=== PATIENT | female | born 2000 | race Caucasian/White ===

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

== ENCOUNTER 2019-03-21 21:27 | Emergency (ER) | payer BC ==
[2019-03-21 21:40] VITALS: O2SAT 97
[2019-03-21] MEDS ORDERED: Sodium Chloride 0.9% 1000 ML 1,000 ML IV SCH (22:15)
--- NOTE | 2019-03-21 22:20 | ERPHSYRPT ---
- History of Present Illness Time Seen by Provider: 03/21/19 22:00 Source: patient Patient Subjective Stated Complaint: pt states, "I'm in DKA, my BS was 432 at home and my ketones were large". Triage Nursing Assessment: pt states her blood sugars have been high and her assistant county attorney told her to come in due to and increase in her ketones. patient alert and oriented with no further difficulties Physician History: Patient has had high blood sugars past 4 hours. Patient had a kink in her insulin pump in the evening of 03/21/2019 and did not get insulin for 2 hours at least. Patient began having increased thirst, increased urination, headache and fatigue at 17:00 on 03/22/2019 and found that she had high ketones on her check. Timing/Duration: today, hour(s) (4) Severity: moderate Modifying Factors: Improves With: nothing Associated Symptoms: headaches, malaise, weakness, No nausea, No vomiting, No abdominal pain, No shortness of breath, No heartburn, No diaphoresis, No cough, No chills, No chest pain, No fever, No loss of appetite, No rash, No syncope, No seizure Allergies/Adverse Reactions: nickel [Nickel] Allergy (Verified 11/12/15 15:25) Rash Home Medications: Insulin Aspart (Niacinamide) [Fiasp 100 Unit/ml Vial] 03/21/19 [History] Hx Tetanus, Diphtheria Vaccination/Date Given: Yes Hx Influenza Vaccination/Date Given: No Hx Pneumococcal Vaccination/Date Given: No Immunizations Up to Date: Yes - Review of Systems Constitutional: Fatigue, Malaise, Weakness, No Fever, No Chills Eyes: No Eye Pain, No Vision Changes Ears, Nose, & Throat: No Ear Pain, No Nose Congestion, No Epistaxis, No Throat Pain, No Hoarse, No Painful Swallowing Respiratory: No Cough, No Dyspnea Cardiac: No Chest Pain, No Edema, No Syncope Abdominal/Gastrointestinal: No Abdominal Pain, No Nausea, No Vomiting, No Diarrhea, No Constipation, No Hematemesis Genitourinary Symptoms: No Dysuria Musculoskeletal: No Back Pain, No Neck Pain Skin: No Rash Neurological: No Dizziness, No Focal Weakness, No Parasthesia, No Sensory Changes Psychological: No Anxiety, No Emotional Lability Endocrine: No Symptoms, Polyuria, Polydipsia, No Excessive Sweating Hematologic/Lymphatic: No Easy Bleeding, No Easy Bruising All Other Systems: Reviewed and Negative - Past Medical History Pertinent Past Medical History: Yes Neurological History: No Pertinent History ENT History: No Pertinent History Cardiac History: No Pertinent History Respiratory History: No Pertinent History Endocrine Medical History: Diabetes Type I Musculoskeletal History: No Pertinent History GI Medical History: No Pertinent History History: No Pertinent History Psycho-Social History: No Pertinent History Female Reproductive Disorders: No Pertinent History Other Medical History: DMI with insuline pump, L wrist fracture 2x, R wrist fracture, broken nose - Past Surgical History Past Surgical History: Yes Neuro Surgical History: No Pertinent History Cardiac: No Pertinent History Respiratory: No Pertinent History Gastrointestinal: No Pertinent History Genitourinary: No Pertinent History Musculoskeletal: No Pertinent History Female Surgical History: No Pertinent History Other Surgical History: tonsillectomy. and adenoidectomy at age 6 - Social History Smoking Status: Never smoker Exposure to second hand smoke: No Drug Use: none Patient Lives Alone: No - Female History Hx Last Menstrual Period: 03/09/19 Hx Now: No - Nursing Vital Signs Nursing Vital Signs: Initial Vital Signs Temperature 98.6 F 03/21/19 21:36 Pulse Rate 114 H 03/21/19 21:36 Respiratory Rate 17 03/21/19 21:36 Blood Pressure 128/83 03/21/19 21:36 O2 Sat by Pulse Oximetry 97 03/21/19 21:36 Pain Scale Pain Intensity 4 - Physical Exam General Appearance: no apparent distress, alert Eye Exam: PERRL/EOMI, eyes nml inspection Ears, Nose, Throat Exam: normal ENT inspection, TMs normal, pharynx normal, moist mucous membranes Neck Exam: normal inspection, non-tender, supple, full range of motion, No meningismus, No Brudzinski Respiratory Exam: normal breath sounds, lungs clear, No respiratory distress Cardiovascular Exam: regular rate/rhythm, normal heart sounds, normal peripheral pulses, capillary refill <2 sec Gastrointestinal/Abdomen Exam: soft, normal bowel sounds, No tenderness, No distention, No mass Back Exam: normal inspection, normal range of motion, No CVA tenderness, No vertebral tenderness Extremity Exam: normal inspection, normal range of motion, pelvis stable Neurologic Exam: alert, oriented x 3, cooperative, normal mood/affect, nml cerebellar function, nml station & gait, sensation nml, No motor deficits Skin Exam: normal color, warm, dry, No rash Lymphatic Exam: No adenopathy SpO2 Interpretation: normal SpO2: 97 O2 Delivery: Room Air - Course Nursing assessment & vital signs reviewed: Yes EKG Interpreted by Me: RATE (99), Sinus Rhythm, NORMAL AXIS, NORMAL INTERVALS, NORMAL QRS, NORMAL ST-T Rhythm Strip: Normal Sinus Rhythm - Radiology Exams Chest X-ray Interpretation: Interpreted by me, Reviewed by me, No Fracture, No Pneumonia, No Pneumothorax, No Infiltrates, Nml Mediastinum Ordered Tests: Active Orders 24 hr Category Date Time Status Accucheck STAT Care 03/21/19 22:11 Active K 9 Handler/ Deputy STAT Care 03/21/19 22:12 Active EKG-ER Only STAT Care 03/21/19 22:11 Active IV Insertion STAT Care 03/21/19 22:11 Active IV Insertion-2nd Peripheral STAT Care 03/21/19 22:11 Active Pulse Oximetry (ED) STAT Care 03/21/19 22:11 Active CHEST 1 VIEW (PORTABLE) Stat Exams 03/21/19 22:12 Taken BLOOD CULTURE Stat Lab 03/21/19 22:12 Received BMP Stat Lab 03/22/19 00:54 Completed CBC W DIFF Stat Lab 03/21/19 22:38 Completed CMP Stat Lab 03/21/19 22:38 Completed CULTURE,URINE Stat Lab 03/22/19 00:26 Received HCG,QUALITATIVE URINE Stat Lab 03/21/19 22:45 Completed Lactic Acid Stat Lab 03/21/19 22:11 Results Lactic Acid Stat Lab 03/22/19 00:50 Completed PROTIME WITH INR Stat Lab 03/21/19 22:38 Completed PTT Stat Lab 03/21/19 22:38 Completed UA W/RFX UR CULTURE Stat Lab 03/21/19 22:45 Completed VENOUS BLOOD GAS Stat Lab 03/21/19 22:11 Completed VENOUS BLOOD GAS Stat Lab 03/22/19 00:50 Completed Medication Summary Generic Name Dose Route Start Last Admin Trade Name Freq PRN Reason Stop Dose Admin Sodium Chloride 1,000 mls @ 999 mls/hr 03/21/19 22:15 03/22/19 00:33 Sodium Chloride 0.9% 1000 Ml IV 03/22/19 01:15 Infused .Q1H1M EUGENIO Infusion Dextrose 250 mls @ 80 mls/hr 03/22/19 01:00 03/22/19 00:38 Dextrose 10% 250 Ml IV 04/21/19 00:59 80 mls/hr .Q3H8M EUGENIO Administration Lab/Rad Data: Laboratory Result Diagrams 03/21/19 22:38 03/22/19 00:54 Laboratory Results 03/22/19 03/22/19 03/22/19 Range/Units 00:54 00:50 00:50 WBC (4.0-10.5) K/mm3 RBC (4.1-5.4) M/mm3 Hgb (12.0-16.0) gm/dl Hct (35-47) % MCV (78-100) fl MCH (26-32) pg MCHC (32-36) g/dl RDW (11.5-14.0) % Plt Count (150-450) K/mm3 MPV (6-9.5) fl Gran % (36.0-66.0) % Eos # (Auto) (0-0.5) Absolute Lymphs (auto) (1.0-4.6) Absolute Monos (auto) (0.0-1.3) Lymphocytes % (24.0-44.0) % Monocytes % (0.0-12.0) % Eosinophils % (0.00-5.0) % Basophils % (0.0-0.4) % Absolute Granulocytes (1.4-6.9) Basophils # (0-0.4) PT (9.95-12.35) SECONDS INR (0.8-3.0) APTT (25.3-37.0) SECONDS pO2/FiO2 Ratio 21.0 % VBG pH 7.30 L (7.32-7.42) VBG pCO2 at Pat Temp 43 (42-55) mm/Hg VBG pO2 at Pat Temp 30 (25-40) mm/Hg VBG HCO3 21.2 L (22-28) meq/L VBG O2 Sat ([place]) 64.4 L (95-100) VBG Base Excess -5.1 L (-2.0-2.0) VBG Hemoglobin 13.6 VBG Carboxyhemoglobin 2.5 (0.0-6.9) % T HGB POC Potassium 3.4 L (3.5-5.1) Sodium 140 (137-145) mmol/L Potassium 3.6 (3.5-5.1) mmol/L Chloride 110 H (98-107) mmol/L Carbon Dioxide 21 L (22-30) mmol/L Anion Gap 12.4 (5-15) MEQ/L BUN 11 (7-17) mg/dL Creatinine 0.44 L (0.52-1.04) mg/dL Estimated GFR > 60.0 ML/MIN Glucose 107 H (74-106) mg/dL Lactic Acid 1.4 (0.4-2.0) Calcium 8.0 L D (8.4-10.2) mg/dL Total Bilirubin (0.2-1.3) mg/dL AST (14-36) U/L ALT (0-35) U/L Alkaline Phosphatase (38-126) U/L Serum Total Protein (6.3-8.2) g/dL Albumin (3.5-5.0) g/dL Urine Color (YELLOW) Urine Appearance (CLEAR) Urine pH (5-6) Ur Specific [place] (1.005-1.025) Urine Protein (Negative) Urine Ketones (NEGATIVE) Urine Blood (0-5) [place]/ul Urine Nitrite (NEGATIVE) Urine Bilirubin (NEGATIVE) Urine Urobilinogen (0-1) mg/dL Ur Leukocyte Esterase (NEGATIVE) Urine WBC (Auto) (0-5) /HPF Urine RBC (Auto) (0-2) /HPF U Epithel Cells (Auto) (FEW) /HPF Urine Bacteria (Auto) (NEGATIVE) /HPF Urine Mucus (Auto) (NEGATIVE) /HPF Urine Culture Reflexed (NO) Urine Glucose (NEGATIVE) mg/dL Urine HCG, Qual (Negative) 03/21/19 03/21/19 03/21/19 Range/Units 22:45 22:45 22:38 WBC (4.0-10.5) K/mm3 RBC (4.1-5.4) M/mm3 Hgb (12.0-16.0) gm/dl Hct (35-47) % MCV (78-100) fl MCH (26-32) pg MCHC (32-36) g/dl RDW (11.5-14.0) % Plt Count (150-450) K/mm3 MPV (6-9.5) fl Gran % (36.0-66.0) % Eos # (Auto) (0-0.5) Absolute Lymphs (auto) (1.0-4.6) Absolute Monos (auto) (0.0-1.3) Lymphocytes % (24.0-44.0) % Monocytes % (0.0-12.0) % Eosinophils % (0.00-5.0) % Basophils % (0.0-0.4) % Absolute Granulocytes (1.4-6.9) Basophils # (0-0.4) PT 10.4 (9.95-12.35) SECONDS INR 0.92 (0.8-3.0) APTT 35.3 (25.3-37.0) SECONDS pO2/FiO2 Ratio % VBG pH (7.32-7.42) VBG pCO2 at Pat Temp (42-55) mm/Hg VBG pO2 at Pat Temp (25-40) mm/Hg VBG HCO3 (22-28) meq/L VBG O2 Sat ([place]) (95-100) VBG Base Excess (-2.0-2.0) VBG Hemoglobin VBG Carboxyhemoglobin (0.0-6.9) % T HGB POC Potassium (3.5-5.1) Sodium (137-145) mmol/L Potassium (3.5-5.1) mmol/L Chloride (98-107) mmol/L Carbon Dioxide (22-30) mmol/L Anion Gap (5-15) MEQ/L BUN (7-17) mg/dL Creatinine (0.52-1.04) mg/dL Estimated GFR ML/MIN Glucose (74-106) mg/dL Lactic Acid (0.4-2.0) Calcium (8.4-10.2) mg/dL Total Bilirubin (0.2-1.3) mg/dL AST (14-36) U/L ALT (0-35) U/L Alkaline Phosphatase (38-126) U/L Serum Total Protein (6.3-8.2) g/dL Albumin (3.5-5.0) g/dL Urine Color STRAW (YELLOW) Urine Appearance CLEAR (CLEAR) Urine pH 5.0 (5-6) Ur Specific [place] 1.033 (1.005-1.025) Urine Protein NEGATIVE (Negative) Urine Ketones SMALL (NEGATIVE) Urine Blood NEGATIVE (0-5) [place]/ul Urine Nitrite NEGATIVE (NEGATIVE) Urine Bilirubin NEGATIVE (NEGATIVE) Urine Urobilinogen NEGATIVE (0-1) mg/dL Ur Leukocyte Esterase NEGATIVE (NEGATIVE) Urine WBC (Auto) NONE (0-5) /HPF Urine RBC (Auto) NONE SEEN (0-2) /HPF U Epithel Cells (Auto) NONE (FEW) /HPF Urine Bacteria (Auto) NONE SEEN (NEGATIVE) /HPF Urine Mucus (Auto) SLIGHT (NEGATIVE) /HPF Urine Culture Reflexed NO (NO) Urine Glucose >=500 (NEGATIVE) mg/dL Urine HCG, Qual NEGATIVE (Negative) 03/21/19 03/21/19 03/21/19 Range/Units 22:38 22:38 22:11 WBC 9.6 (4.0-10.5) K/mm3 RBC 5.26 (4.1-5.4) M/mm3 Hgb 15.5 (12.0-16.0) gm/dl Hct 44.9 (35-47) % MCV 85.4 (78-100) fl MCH 29.5 (26-32) pg MCHC 34.5 (32-36) g/dl RDW 12.5 (11.5-14.0) % Plt Count 267 (150-450) K/mm3 MPV 11.4 H (6-9.5) fl Gran % 60.3 (36.0-66.0) % Eos # (Auto) 0.10 (0-0.5) Absolute Lymphs (auto) 3.09 (1.0-4.6) Absolute Monos (auto) 0.58 (0.0-1.3) Lymphocytes % 32.4 (24.0-44.0) % Monocytes % 6.1 (0.0-12.0) % Eosinophils % 1.0 (0.00-5.0) % Basophils % 0.2 (0.0-0.4) % Absolute Granulocytes 5.76 (1.4-6.9) Basophils # 0.02 (0-0.4) PT (9.95-12.35) SECONDS INR (0.8-3.0) APTT (25.3-37.0) SECONDS pO2/FiO2 Ratio 21.0 % VBG pH 7.30 L (7.32-7.42) VBG pCO2 at Pat Temp 49 (42-55) mm/Hg VBG pO2 at Pat Temp 25 (25-40) mm/Hg VBG HCO3 24.1 (22-28) meq/L VBG O2 Sat ([place]) 51.4 L (95-100) VBG Base Excess -2.9 L (-2.0-2.0) VBG Hemoglobin 16.1 VBG Carboxyhemoglobin 2.1 (0.0-6.9) % T HGB POC Potassium 4.0 (3.5-5.1) Sodium 138 (137-145) mmol/L Potassium 4.2 (3.5-5.1) mmol/L Chloride 100 (98-107) mmol/L Carbon Dioxide 24 (22-30) mmol/L Anion Gap 18.4 H (5-15) MEQ/L BUN 15 (7-17) mg/dL Creatinine 0.54 (0.52-1.04) mg/dL Estimated GFR > 60.0 ML/MIN Glucose 300 H (74-106) mg/dL Lactic Acid (0.4-2.0) Calcium 10.0 (8.4-10.2) mg/dL Total Bilirubin 0.50 (0.2-1.3) mg/dL AST 20 (14-36) U/L ALT 17 (0-35) U/L Alkaline Phosphatase 105 (38-126) U/L Serum Total Protein 8.1 (6.3-8.2) g/dL Albumin 4.7 (3.5-5.0) g/dL Urine Color (YELLOW) Urine Appearance (CLEAR) Urine pH (5-6) Ur Specific [place] (1.005-1.025) Urine Protein (Negative) Urine Ketones (NEGATIVE) Urine Blood (0-5) [place]/ul Urine Nitrite (NEGATIVE) Urine Bilirubin (NEGATIVE) Urine Urobilinogen (0-1) mg/dL Ur Leukocyte Esterase (NEGATIVE) Urine WBC (Auto) (0-5) /HPF Urine RBC (Auto) (0-2) /HPF U Epithel Cells (Auto) (FEW) /HPF Urine Bacteria (Auto) (NEGATIVE) /HPF Urine Mucus (Auto) (NEGATIVE) /HPF Urine Culture Reflexed (NO) Urine Glucose (NEGATIVE) mg/dL Urine HCG, Qual (Negative) 03/21/19 Range/Units 22:11 WBC (4.0-10.5) K/mm3 RBC (4.1-5.4) M/mm3 Hgb (12.0-16.0) gm/dl Hct (35-47) % MCV (78-100) fl MCH (26-32) pg MCHC (32-36) g/dl RDW (11.5-14.0) % Plt Count (150-450) K/mm3 MPV (6-9.5) fl Gran % (36.0-66.0) % Eos # (Auto) (0-0.5) Absolute Lymphs (auto) (1.0-4.6) Absolute Monos (auto) (0.0-1.3) Lymphocytes % (24.0-44.0) % Monocytes % (0.0-12.0) % Eosinophils % (0.00-5.0) % Basophils % (0.0-0.4) % Absolute Granulocytes (1.4-6.9) Basophils # (0-0.4) PT (9.95-12.35) SECONDS INR (0.8-3.0) APTT (25.3-37.0) SECONDS pO2/FiO2 Ratio % VBG pH (7.32-7.42) VBG pCO2 at Pat Temp (42-55) mm/Hg VBG pO2 at Pat Temp (25-40) mm/Hg VBG HCO3 (22-28) meq/L VBG O2 Sat ([place]) (95-100) VBG Base Excess (-2.0-2.0) VBG Hemoglobin VBG Carboxyhemoglobin (0.0-6.9) % T HGB POC Potassium (3.5-5.1) Sodium (137-145) mmol/L Potassium (3.5-5.1) mmol/L Chloride (98-107) mmol/L Carbon Dioxide (22-30) mmol/L Anion Gap (5-15) MEQ/L BUN (7-17) mg/dL Creatinine (0.52-1.04) mg/dL Estimated GFR ML/MIN Glucose (74-106) mg/dL Lactic Acid 2.1 H (0.4-2.0) Calcium (8.4-10.2) mg/dL Total Bilirubin (0.2-1.3) mg/dL AST (14-36) U/L ALT (0-35) U/L Alkaline Phosphatase (38-126) U/L Serum Total Protein (6.3-8.2) g/dL Albumin (3.5-5.0) g/dL Urine Color (YELLOW) Urine Appearance (CLEAR) Urine pH (5-6) Ur Specific [place] (1.005-1.025) Urine Protein (Negative) Urine Ketones (NEGATIVE) Urine Blood (0-5) [place]/ul Urine Nitrite (NEGATIVE) Urine Bilirubin (NEGATIVE) Urine Urobilinogen (0-1) mg/dL Ur Leukocyte Esterase (NEGATIVE) Urine WBC (Auto) (0-5) /HPF Urine RBC (Auto) (0-2) /HPF U Epithel Cells (Auto) (FEW) /HPF Urine Bacteria (Auto) (NEGATIVE) /HPF Urine Mucus (Auto) (NEGATIVE) /HPF Urine Culture Reflexed (NO) Urine Glucose (NEGATIVE) mg/dL Urine HCG, Qual (Negative) - Progress Progress: improved Progress Note: 03/22/19 00:30 Patient felt she had blurry vision; Fingerstick glucose was 75 03/22/19 01:00 Patient doing better after starting D10W at 80ml. Patient has no acute complaints 03/22/19 01:39 Patient is feeling much better. She prefers to be discharged home and not be brought in for observation. Counseled pt/family regarding: lab results, diagnosis, need for follow-up, rad results - Departure Departure Disposition: Home Clinical Impression: Acute hyperglycemia, Metabolic acidosis due to diabetes mellitus Condition: Good Critical Care Time: No Referrals: INDIRA PAULSON [Primary Care Provider] - 03/22/19 Instructions: Hyperglycemia, Adult (DC), Metabolic Acidosis Additional Instructions: Return immediately to the emergency department if any worse such as increased thirst, increased urination, any fevers, new fatigue, recurrence of headache, dry mouth, or any other concern sign or symptom that was not present at today's emergency department visit for immediate reevaluation in the emergency department
[2019-03-21 22:39] LABS: BASOPHIL % 0.2 % (0.0-0.4); Basophil (Absolute #) 0.02 (0-0.4); Granulocyte Absolute (ANC) 5.76 (1.4-6.9); Granulocytes % 60.3 % (36.0-66.0); Hematocrit 44.9 % (35-47); Hemoglobin 15.5 gm/dl (12.0-16.0); Lymphocyte (Absolute #) 3.09 (1.0-4.6); Lymphocytes % 32.4 % (24.0-44.0); Mean Cell Volume 85.4 fl (78-100); Mean Corpuscular Hemoglobin 29.5 pg (26-32); Mean Corpuscular Hgb Concent. 34.5 g/dl (32-36); Mean Platelet Volume 11.4 fl (6-9.5); Monocyte (Absolute #) 0.58 (0.0-1.3); Monocytes % 6.1 % (0.0-12.0); Platelet Count 267 K/mm3 (150-450); Red Blood Count 5.26 M/mm3 (4.1-5.4); Red Cell Distribution Width 12.5 % (11.5-14.0); White Blood Count 9.6 K/mm3 (4.0-10.5)
[2019-03-21 22:42] LABS: INR 0.92 (0.8-3.0); PROTIME 10.4 SECONDS (9.95-12.35)
[2019-03-21 22:45] LABS: PTT 35.3 SECONDS (25.3-37.0)
[2019-03-21 22:47] LABS: ALBUMIN 4.7 g/dL (3.5-5.0); ALKALINE PHOSPHATASE 105 U/L (38-126); ANION GAP 18.4 MEQ/L (5-15); BLOOD UREA NITROGEN 15 mg/dL (7-17); CHLORIDE 100 mmol/L (98-107); Carbon Dioxide 24 mmol/L (22-30); Creatinine 1 0.54 mg/dL (0.52-1.04); Glucose 300 mg/dL (74-106); Potassium 4.2 mmol/L (3.5-5.1); SGOT/AST 20 U/L (14-36); SGPT/ALT 17 U/L (0-35); SODIUM 138 mmol/L (137-145); Total Protein 8.1 g/dL (6.3-8.2)
[2019-03-21 22:53] LABS: Appearance CLEAR (CLEAR); Bilirubin NEGATIVE (NEGATIVE); Blood NEGATIVE Ery/ul (0-5); Glucose >=500 mg/dL (NEGATIVE); Ketones SMALL (NEGATIVE); Leukocyte Esterase NEGATIVE (NEGATIVE); Mucus SLIGHT /HPF (NEGATIVE); Nitrite NEGATIVE (NEGATIVE); Protein,Urine Dip NEGATIVE (Negative); Specific Gravity 1.033 (1.005-1.025); Urobilinogen NEGATIVE mg/dL (0-1)
[2019-03-21 23:09] LABS: Bacteria NONE SEEN /HPF (NEGATIVE); RBC NONE SEEN /HPF (0-2)
[2019-03-21] MEDS ORDERED: Sodium Chloride 0.9% 1000 ML 1,000 ML ONE (23:16)
[2019-03-21 23:33] LABS: VBG BASE EXCESS -2.9 (-2.0-2.0); VBG CARBOXYHEMOGLOBIN 2.1 % T HGB (0.0-6.9); VBG HCO3- 24.1 meq/L (22-28); VBG HEMOGLOBIN 16.1; VBG O2 SATURATION 51.4 (95-100); VBG pH 7.3 (7.32-7.42)
[2019-03-21 23:40] LABS: Lactic Acid 2.1 (0.4-2.0)
[2019-03-22 00:34] VITALS: BP 116/67; PULSE 106
[2019-03-22] MEDS ORDERED: DEXTROSE 10% 250 ML 250 ML IV SCH (01:00)
[2019-03-22 01:06] LABS: ANION GAP 12.4 MEQ/L (5-15); BLOOD UREA NITROGEN 11 mg/dL (7-17); CHLORIDE 110 mmol/L (98-107); Carbon Dioxide 21 mmol/L (22-30); Creatinine 1 0.44 mg/dL (0.52-1.04); Glucose 107 mg/dL (74-106); Potassium 3.6 mmol/L (3.5-5.1); SODIUM 140 mmol/L (137-145)
[2019-03-22 01:07] LABS: VBG BASE EXCESS -5.1 (-2.0-2.0); VBG CARBOXYHEMOGLOBIN 2.5 % T HGB (0.0-6.9); VBG HCO3- 21.2 meq/L (22-28); VBG HEMOGLOBIN 13.6; VBG O2 SATURATION 64.4 (95-100); VBG POTASSIUM 3.4 (3.5-5.1); VBG pH 7.3 (7.32-7.42)
--- NOTE | 2019-03-22 14:44 | XRAY ---
Exam: AP upright portable chest film from 03/21/2019. Comparison: Two-view chest from 01/30/2019. Indication: DKA, possible sepsis. Findings: The heart size and contour appear normal. The rubina and mediastinal structures appear intact. The lung thomas are well inflated. No air space infiltrates, vascular congestion, pneumothorax, or pleural fluid is seen. No acute osseous process is seen. Impression: 1. No air space infiltrates to suggest pneumonia or other acute cardiopulmonary disease is seen.
== END 2019-03-22 02:21 | disposition home or self-care (01) ==
LOC: ED 21:27
DX: E10.65 Type 1 diabetes mellitus with hyperglycemia (principal); E87.2 Acidosis
CPT/HCPCS: 36000; 36415; 71045; 80048; 80053; 81001; 82805; 82962; 83605; 84703; 85025; 85610; 85730; 87040; 87086; 93005; 94760; 96360; 96361; 96374; 99284

== ENCOUNTER 2019-03-30 15:32 | Observation (INO) | payer BC ==
--- NOTE | 2019-03-30 16:04 | ERPHSYRPT ---
- History of Present Illness Time Seen by Provider: 03/30/19 15:50 Source: patient, family Exam Limitations: no limitations Patient Subjective Stated Complaint: Pt states "I think I am DKA again. I was really thirsty and my sugar was 298, when I checked my keytones, they were high. " Triage Nursing Assessment: Pt presented alert and oriented X 3, skin pwd Pt ambulates with an upright steady gait, able to speak in clear full sentences. Pt in no apparent respiratory distress. Physician History: 19 y/o iddm white female presents with thirst this am. bs evaluated and high. thirst, mild headache and mild abd cramping present. these are typical sx when she has dka. she checked and ketones positive. pt told by sericulturist to go to ED for evaluation and management. pt uses only an insulin pump and was changed to a different insulin 3 weeks ago. pt denies n/v Timing/Duration: today Severity: mild Associated Symptoms: abdominal pain (mild cramping), headaches, other (thirst), No nausea, No vomiting Allergies/Adverse Reactions: nickel [Nickel] Allergy (Verified 11/12/15 15:25) Rash Home Medications: Insulin Aspart (Niacinamide) [Fiasp 100 Unit/ml Vial] 1 unit IM UD 03/21/19 [ History] [place]-3/Dha/Epa/Fish Oil [Fish Oil 500 mg Softgel] 1 cap PO DAILY 03/30/19 [ History] Hx Tetanus, Diphtheria Vaccination/Date Given: Yes Hx Influenza Vaccination/Date Given: No Hx Pneumococcal Vaccination/Date Given: No Immunizations Up to Date: Yes - Review of Systems Constitutional: No Symptoms Eyes: No Symptoms Ears, Nose, & Throat: No Symptoms Respiratory: No Symptoms Cardiac: No Symptoms Abdominal/Gastrointestinal: Abdominal Pain (mild cramping diffuse), No Nausea, No Vomiting, No Diarrhea Genitourinary Symptoms: No Symptoms Musculoskeletal: No Symptoms Skin: No Symptoms Neurological: Headache Endocrine: Polydipsia Hematologic/Lymphatic: No Symptoms Immunological/Allergic: No Symptoms All Other Systems: Reviewed and Negative - Past Medical History Pertinent Past Medical History: Yes Neurological History: No Pertinent History ENT History: No Pertinent History Cardiac History: No Pertinent History Respiratory History: No Pertinent History Endocrine Medical History: Diabetes Type I Musculoskeletal History: No Pertinent History GI Medical History: No Pertinent History History: No Pertinent History Psycho-Social History: No Pertinent History Female Reproductive Disorders: No Pertinent History Other Medical History: DMI with insuline pump, L wrist fracture 2x, R wrist fracture, broken nose - Past Surgical History Past Surgical History: Yes Neuro Surgical History: No Pertinent History Cardiac: No Pertinent History Respiratory: No Pertinent History Gastrointestinal: No Pertinent History Genitourinary: No Pertinent History Musculoskeletal: No Pertinent History Female Surgical History: No Pertinent History Other Surgical History: tonsillectomy. and adenoidectomy at age 6 - Social History Smoking Status: Current some day smoker How long have you smoked: years Exposure to second hand smoke: No Drug Use: none Patient Lives Alone: No - Female History Hx Last Menstrual Period: 02/06/2019 Hx Now: (unknown) - Nursing Vital Signs Nursing Vital Signs: Initial Vital Signs Temperature 99.0 F 03/30/19 15:43 Pulse Rate 112 H 03/30/19 15:43 Respiratory Rate 18 03/30/19 15:43 Blood Pressure 128/86 03/30/19 15:43 O2 Sat by Pulse Oximetry 98 03/30/19 15:43 Pain Scale Pain Intensity 0 - Physical Exam General Appearance: mild distress, alert, anxiety Eye Exam: PERRL/EOMI, eyes nml inspection Ears, Nose, Throat Exam: dry mucous membranes Neck Exam: normal inspection, non-tender, supple, full range of motion Respiratory Exam: normal breath sounds, lungs clear, airway intact, No chest tenderness, No respiratory distress Cardiovascular Exam: tachycardia (mild) Gastrointestinal/Abdomen Exam: soft, normal bowel sounds, No tenderness Pelvic Exam: not done Rectal Exam: not done Back Exam: normal inspection, normal range of motion, No CVA tenderness, No vertebral tenderness Extremity Exam: normal inspection, normal range of motion, pelvis stable Neurologic Exam: alert, oriented x 3, cooperative, activity aid II-XII nml as tested, normal mood/affect, nml cerebellar function, nml station & gait Skin Exam: normal color, warm, dry Lymphatic Exam: No adenopathy SpO2 Interpretation: normal SpO2: 98 O2 Delivery: Room Air - Course Nursing assessment & vital signs reviewed: Yes Ordered Tests: Active Orders 24 hr Category Date Time Status Barrel Ribs Solderer STAT Care 03/30/19 16:07 Active IV Insertion STAT Care 03/30/19 16:06 Active CBC W DIFF Stat Lab 03/30/19 16:10 Completed CMP Stat Lab 03/30/19 16:10 Completed HCG,QUALITATIVE URINE Stat Lab 03/30/19 16:14 Completed Lactic Acid Stat Lab 03/30/19 18:27 Ordered Lactic Acid Urgent Lab 03/30/19 16:06 Completed UA W/RFX UR CULTURE Stat Lab 03/30/19 16:14 Completed UA W/RFX UR CULTURE Stat Lab 03/30/19 18:44 Completed Transfer Order Routine Transfer 03/30/19 Ordered Medication Summary Discontinued Medications Generic Name Dose Route Start Last Admin Trade Name Juanito PRN Reason Stop Dose Admin Acetaminophen 650 mg 03/30/19 18:29 03/30/19 18:37 Tylenol 325 Mg PO 03/30/19 18:30 650 mg STAT STA Administration Acetaminophen Confirm 03/30/19 18:34 Tylenol 325 Mg Administered 03/30/19 18:35 Dose 650 mg .ROUTE .[facility] ONE Hydromorphone HCl 0.5 mg 03/30/19 17:41 03/30/19 18:29 Hydromorphone 1 Mg/Ml Ampule IV 03/30/19 17:42 Not Given STAT ONE Sodium Chloride 1,000 mls @ 999 mls/hr 03/30/19 16:06 03/30/19 17:23 Sodium Chloride 0.9% 1000 Ml IV 03/30/19 17:06 Infused .Q1H1M STA Infusion Sodium Chloride Confirm 03/30/19 16:21 Sodium Chloride 0.9% 1000 Ml Administered 03/30/19 16:22 Dose 1,000 mls @ ud .ROUTE .[facility] Sodium Chloride 1,000 mls @ 999 mls/hr 03/30/19 16:42 03/30/19 18:17 Sodium Chloride 0.9% 1000 Ml IV 03/30/19 17:42 Infused .Q1H1M STA Infusion Sodium Chloride Confirm 03/30/19 17:03 Sodium Chloride 0.9% 1000 Ml Administered 03/30/19 17:04 Dose 1,000 mls @ ud .ROUTE .[facility] Sodium Chloride 1,000 mls @ 999 mls/hr 03/30/19 17:42 03/30/19 19:22 Sodium Chloride 0.9% 1000 Ml IV 03/30/19 18:42 Infused .Q1H1M STA Infusion Sodium Chloride Confirm 03/30/19 18:11 Sodium Chloride 0.9% 1000 Ml Administered 03/30/19 18:12 Dose 1,000 mls @ ud .ROUTE .[facility] ONE Ondansetron HCl 4 mg 03/30/19 17:40 03/30/19 18:15 Zofran 4 Mg/2 Ml Vial IV 03/30/19 17:41 4 mg STAT ONE Administration Ondansetron HCl Confirm 03/30/19 18:11 Zofran 4 Mg/2 Ml Vial Administered 03/30/19 18:12 Dose 4 mg .ROUTE .[facility] ONE Lab/Rad Data: Laboratory Result Diagrams 03/30/19 16:10 03/30/19 16:10 Laboratory Results 03/30/19 03/30/19 03/30/19 Range/Units 18:44 16:14 16:14 WBC (4.0-10.5) K/mm3 RBC (4.1-5.4) M/mm3 Hgb (12.0-16.0) gm/dl Hct (35-47) % MCV (78-100) fl MCH (26-32) pg MCHC (32-36) g/dl RDW (11.5-14.0) % Plt Count (150-450) K/mm3 MPV (6-9.5) fl Gran % (36.0-66.0) % Eos # (Auto) (0-0.5) Absolute Lymphs (auto) (1.0-4.6) Absolute Monos (auto) (0.0-1.3) Lymphocytes % (24.0-44.0) % Monocytes % (0.0-12.0) % Eosinophils % (0.00-5.0) % Basophils % (0.0-0.4) % Absolute Granulocytes (1.4-6.9) Basophils # (0-0.4) Sodium (137-145) mmol/L Potassium (3.5-5.1) mmol/L Chloride (98-107) mmol/L Carbon Dioxide (22-30) mmol/L Anion Gap (5-15) MEQ/L BUN (7-17) mg/dL Creatinine (0.52-1.04) mg/dL Estimated GFR ML/MIN Glucose (74-106) mg/dL Lactic Acid (0.4-2.0) Calcium (8.4-10.2) mg/dL Total Bilirubin (0.2-1.3) mg/dL AST (14-36) U/L ALT (0-35) U/L Alkaline Phosphatase (38-126) U/L Serum Total Protein (6.3-8.2) g/dL Albumin (3.5-5.0) g/dL Urine Color COLORLESS YELLOW (YELLOW) Urine Appearance CLEAR SLIGHTLY CLOUDY (CLEAR) Urine pH 6.0 5.0 (5-6) Ur Specific [place] 1.001 1.033 (1.005-1.025) Urine Protein NEGATIVE NEGATIVE (Negative) Urine Ketones TRACE MODERATE (NEGATIVE) Urine Blood NEGATIVE NEGATIVE (0-5) [place]/ul Urine Nitrite NEGATIVE NEGATIVE (NEGATIVE) Urine Bilirubin NEGATIVE NEGATIVE (NEGATIVE) Urine Urobilinogen NEGATIVE NEGATIVE (0-1) mg/dL Ur Leukocyte Esterase NEGATIVE NEGATIVE (NEGATIVE) Urine WBC (Auto) NONE 3-5 (0-5) /HPF Urine RBC (Auto) NONE NONE (0-2) /HPF U Epithel Cells (Auto) NONE RARE (FEW) /HPF Urine Bacteria (Auto) NONE NONE (NEGATIVE) /HPF Urine Mucus (Auto) SLIGHT (NEGATIVE) /HPF Urine Culture Reflexed NO NO (NO) Urine Glucose NEGATIVE >=500 (NEGATIVE) mg/dL Urine HCG, Qual NEGATIVE (Negative) 03/30/19 03/30/19 03/30/19 Range/Units 16:10 16:10 16:06 WBC 8.8 (4.0-10.5) K/mm3 RBC 5.38 (4.1-5.4) M/mm3 Hgb 15.8 (12.0-16.0) gm/dl Hct 45.8 (35-47) % MCV 85.1 (78-100) fl MCH 29.4 (26-32) pg MCHC 34.5 (32-36) g/dl RDW 12.5 (11.5-14.0) % Plt Count 257 (150-450) K/mm3 MPV 11.1 H (6-9.5) fl Gran % 62.1 (36.0-66.0) % Eos # (Auto) 0.09 (0-0.5) Absolute Lymphs (auto) 2.85 (1.0-4.6) Absolute Monos (auto) 0.39 (0.0-1.3) Lymphocytes % 32.3 (24.0-44.0) % Monocytes % 4.4 (0.0-12.0) % Eosinophils % 1.0 (0.00-5.0) % Basophils % 0.2 (0.0-0.4) % Absolute Granulocytes 5.47 (1.4-6.9) Basophils # 0.02 (0-0.4) Sodium 137 (137-145) mmol/L Potassium 4.3 (3.5-5.1) mmol/L Chloride 99 (98-107) mmol/L Carbon Dioxide 17 L (22-30) mmol/L Anion Gap 25.5 H (5-15) MEQ/L BUN 14 (7-17) mg/dL Creatinine 0.53 (0.52-1.04) mg/dL Estimated GFR > 60.0 ML/MIN Glucose 266 H (74-106) mg/dL Lactic Acid 1.9 (0.4-2.0) Calcium 9.5 (8.4-10.2) mg/dL Total Bilirubin 1.00 (0.2-1.3) mg/dL AST 22 (14-36) U/L ALT 22 (0-35) U/L Alkaline Phosphatase 110 (38-126) U/L Serum Total Protein 8.7 H (6.3-8.2) g/dL Albumin 5.0 (3.5-5.0) g/dL Urine Color (YELLOW) Urine Appearance (CLEAR) Urine pH (5-6) Ur Specific [place] (1.005-1.025) Urine Protein (Negative) Urine Ketones (NEGATIVE) Urine Blood (0-5) Berhane/ul Urine Nitrite (NEGATIVE) Urine Bilirubin (NEGATIVE) Urine Urobilinogen (0-1) mg/dL Ur Leukocyte Esterase (NEGATIVE) Urine WBC (Auto) (0-5) /HPF Urine RBC (Auto) (0-2) /HPF U Epithel Cells (Auto) (FEW) /HPF Urine Bacteria (Auto) (NEGATIVE) /HPF Urine Mucus (Auto) (NEGATIVE) /HPF Urine Culture Reflexed (NO) Urine Glucose (NEGATIVE) mg/dL Urine HCG, Qual (Negative) - Progress Progress: improved Progress Note: 03/30/19 19:37 sx improved. still with ketones in urine but now trace. 03/30/19 20:[address] [place]. i reviewed pt hx condition, lab results. keep insulin pump on. have pt use her poc sensor every 1 to 2 hours and report to rn if high or low. continue hydration Discussed with .: Aldo Counseled pt/family regarding: lab results, diagnosis - Departure Departure Disposition: Observation Clinical Impression: DKA (diabetic ketoacidoses) Condition: Stable Critical Care Time: Yes Critical Care Time(excluding separately billable procedures): Critical 30-74 mins Referrals: INDIRA DALLAS [Primary Care Provider] -
[2019-03-30] MEDS ORDERED: Sodium Chloride 0.9% 1000 ML 1,000 ML IV STA ×3 (16:06→17:42)
[2019-03-30 16:16] LABS: BASOPHIL % 0.2 % (0.0-0.4); Basophil (Absolute #) 0.02 (0-0.4); Eosinophil (Absolute #) 0.09 (0-0.5); Granulocyte Absolute (ANC) 5.47 (1.4-6.9); Granulocytes % 62.1 % (36.0-66.0); Hematocrit 45.8 % (35-47); Hemoglobin 15.8 gm/dl (12.0-16.0); Lymphocyte (Absolute #) 2.85 (1.0-4.6); Lymphocytes % 32.3 % (24.0-44.0); Mean Cell Volume 85.1 fl (78-100); Mean Corpuscular Hemoglobin 29.4 pg (26-32); Mean Corpuscular Hgb Concent. 34.5 g/dl (32-36); Mean Platelet Volume 11.1 fl (6-9.5); Monocyte (Absolute #) 0.39 (0.0-1.3); Monocytes % 4.4 % (0.0-12.0); Platelet Count 257 K/mm3 (150-450); Red Blood Count 5.38 M/mm3 (4.1-5.4); Red Cell Distribution Width 12.5 % (11.5-14.0); White Blood Count 8.8 K/mm3 (4.0-10.5)
[2019-03-30] MEDS ORDERED: Sodium Chloride 0.9% 1000 ML 1,000 ML ONE ×3 (16:21→18:11)
[2019-03-30 16:27] LABS: ALKALINE PHOSPHATASE 110 U/L (38-126); ANION GAP 25.5 MEQ/L (5-15); BLOOD UREA NITROGEN 14 mg/dL (7-17); CHLORIDE 99 mmol/L (98-107); Calcium 9.5 mg/dL (8.4-10.2); Carbon Dioxide 17 mmol/L (22-30); Creatinine 1 0.53 mg/dL (0.52-1.04); Glucose 266 mg/dL (74-106); Potassium 4.3 mmol/L (3.5-5.1); SGOT/AST 22 U/L (14-36); SGPT/ALT 22 U/L (0-35); SODIUM 137 mmol/L (137-145); Total Protein 8.7 g/dL (6.3-8.2)
[2019-03-30 16:27] LABS: Lactic Acid 1.9 (0.4-2.0)
[2019-03-30 16:29] LABS: Appearance SLIGHTLY CLOUDY (CLEAR); Bilirubin NEGATIVE (NEGATIVE); Blood NEGATIVE Ery/ul (0-5); Epithelial Cells RARE /HPF (FEW); Glucose >=500 mg/dL (NEGATIVE); Ketones MODERATE (NEGATIVE); Leukocyte Esterase NEGATIVE (NEGATIVE); Mucus SLIGHT /HPF (NEGATIVE); Nitrite NEGATIVE (NEGATIVE); Protein,Urine Dip NEGATIVE (Negative); Specific Gravity 1.033 (1.005-1.025); Urobilinogen NEGATIVE mg/dL (0-1)
[2019-03-30] MEDS ORDERED: Zofran 4 MG/2 ML VIAL IV ONE (17:40)
[2019-03-30] MEDS ORDERED: Hydromorphone 1 mg/ml Ampule IV ONE (17:41)
[2019-03-30] MEDS ORDERED: Zofran 4 MG/2 ML VIAL ONE (18:11)
[2019-03-30] MEDS ORDERED: TYLENOL 325 MG PO STA (18:29)
[2019-03-30] MEDS ORDERED: TYLENOL 325 MG ONE (18:34)
[2019-03-30 18:57] LABS: Appearance CLEAR (CLEAR); Bilirubin NEGATIVE (NEGATIVE); Blood NEGATIVE Ery/ul (0-5); Glucose NEGATIVE (NEGATIVE); Ketones TRACE (NEGATIVE); Leukocyte Esterase NEGATIVE (NEGATIVE); Nitrite NEGATIVE (NEGATIVE); Protein,Urine Dip NEGATIVE (Negative); Specific Gravity 1.001 (1.005-1.025); Urobilinogen NEGATIVE mg/dL (0-1)
[2019-03-30] MEDS ORDERED: TYLENOL 325 MG PO PRN (21:11)
[2019-03-30] MEDS ORDERED: Zofran 4 MG/2 ML VIAL IV PRN (21:11)
[2019-03-30] MEDS: Dextrose 5% -0.45 NaCl 1000 ML 1,000 ML IV SCH (21:23)
[2019-03-31 04:38] VITALS: O2SAT 97
[2019-03-31 07:56] VITALS: BP 94/54; PULSE 77
[2019-03-31] MEDS: Dextrose 5% -0.45 NaCl 1000 ML 1,000 ML IV SCH (08:13)
[2019-03-31 08:26] LABS: VBG BASE EXCESS 1.5 (-2.0-2.0); VBG CARBOXYHEMOGLOBIN 2.2 % T HGB (0.0-6.9); VBG HCO3- 27.7 meq/L (22-28); VBG HEMOGLOBIN 12.9; VBG O2 SATURATION 54.1 (95-100); VBG POTASSIUM 3.5 (3.5-5.1); VBG pH 7.36 (7.32-7.42)
[2019-03-31 08:40] LABS: ANION GAP 10.3 MEQ/L (5-15); BLOOD UREA NITROGEN 10 mg/dL (7-17); CHLORIDE 106 mmol/L (98-107); Calcium 8.2 mg/dL (8.4-10.2); Carbon Dioxide 26 mmol/L (22-30); Creatinine 1 0.41 mg/dL (0.52-1.04); Glucose 105 mg/dL (74-106); Potassium 3.8 mmol/L (3.5-5.1); SODIUM 139 mmol/L (137-145)
--- NOTE | 2019-03-31 09:00 | SSS ---
DISCHARGE DIAGNOSES: 1) DEHYDRATION. 2) MILD DIABETIC KETOACIDOSIS. HISTORY: The patient is a 19 year-old white female who has a history of diabetes and has had previous episodes of diabetic ketoacidosis. She was at home feeling very thirsty, checked her sugar and it was noted to be 298. She did urine dipstick for ketones which were strong so she presented to the emergency room where she was given IV fluids and admitted to the hospital for further observation and management. PAST MEDICAL/SURGICAL HISTORY: Significant for diabetes and history of diabetic ketoacidosis. She currently has an insulin pump. They had recently changed her insulin type to [id number] insulin. She has had some trouble keeping her sugars straightened away with this new insulin. PHYSICAL EXAMINATION: Vital signs on admission showed temperature 99.0F, pulse 112, respiratory rate 18 and blood pressure 128/86. O2 saturation 98%. HEENT: Normocephalic, atraumatic. Pupils equal round reactive to light. Extraocular movements intact. Oropharynx is somewhat dry. NECK: Supple without lymphadenopathy, thyromegaly or JVD. CHEST: Clear to auscultation. HEART: Regular rate and rhythm without murmurs, rubs or gallops. ABDOMEN: Soft. No palpable masses. EXTREMITIES: Without cyanosis, clubbing or edema. NEUROLOGIC: The patient is alert and oriented x3. No focal deficits noted. LAB DATA AND TESTS: White count 8,800, hemoglobin 15.8, PLT count 257,000. Urine HCG was negative. Lactic acid was 1.9. Her metabolic panel showed her sugar 266 on admission with a BUN of 14, creatinine of 0.53. Bicarb was slightly low at 17. Liver enzymes were normal. Anion gap was 25.5. Urine showed specific gravity of 1.033 with greater than 500 glucose. Ketones were moderate. HOSPITAL COURSE: By the evening of 03/30/2019, her urine with specific gravity of 1.001 and was negative for ketones or sugar by that time. The patient has been able to eat and drink fluids well. Her sugar was 106 by the next morning using only insulin pump and IV fluids. The patient was felt to be ready for discharge home at this time. She was instructed to call her plasterer maintenance on instructions on further adjustments on her insulin pump.
== END 2019-03-31 10:10 | disposition home or self-care (01) ==
LOC: ED 15:32 → MED SURG 21:00
PROVIDERS: ADMIT Family Medicine; ATTEND Family Medicine
DX: E86.0 Dehydration (principal); E11.10 Type 2 diabetes mellitus with ketoacidosis without coma; Z79.4 Long term (current) use of insulin; Z96.41 Presence of insulin pump (external) (internal)
CPT/HCPCS: 36000; 36415; 80048; 80053; 81001; 82805; 82962; 83605; 84703; 85025; 93041; 96360; 96361; 96374; 96375; 99285; 99291; G0378; J2405; A9270-GY

== ENCOUNTER 2022-05-09 10:26 | Emergency (ER) | payer OTHER ==
[2022-05-09 11:25] LABS: Appearance CLEAR (CLEAR); Bilirubin NEGATIVE (NEGATIVE); Dipstick done @ ? MAIN LAB; Glucose 100 mg/dL (NEGATIVE); Ketones NEGATIVE (NEGATIVE); Nitrite NEGATIVE (NEGATIVE); Protein,Urine Dip NEGATIVE (Negative); RBC LARGE Ery/ul (0-5); Specific Gravity 1.015 (1.005-1.025); Urobilinogen 0.2 mg/dL (0-1)
[2022-05-09 11:26] LABS: Urine Cultured Indicated? NO
[2022-05-09 11:34] LABS: Absolute Neutrophil Ct (ANC) 4.88 x10^3/uL (1.4-6.9); Basophil (Absolute #) 0.04 x10^3/uL (0-0.4); Eosinophil % 0.9 % (0.00-5.0); Eosinophil (Absolute #) 0.07 x10^3/uL (0-0.5); Hematocrit 45.9 % (35-47); Hemoglobin 14.9 g/dL (12.0-16.0); Lymphocyte (Absolute #) 2.33 x10^3/uL (1.0-4.6); Lymphocytes % 29.8 % (24.0-44.0); Mean Cell Volume 87.8 fL (78-100); Mean Corpuscular Hemoglobin 28.5 pg (26-32); Mean Corpuscular Hgb Concent. 32.5 g/dL (32-36); Mean Platelet Volume 10.9 fL (7.5-11.0); Monocyte (Absolute #) 0.49 x10^3/uL (0.0-1.3); Monocytes % 6.3 % (0.0-12.0); Neutrophil % 62.4 % (36.0-66.0); Platelet Count 256 x10^3/uL (150-450); Red Blood Count 5.23 x10^6/uL (4.1-5.4); Red Cell Distribution Width 12.4 % (11.5-14.0); White Blood Count 7.8 x10^3/uL (4.0-10.5)
[2022-05-09] MEDS: Sodium Chloride 0.9% 1000 ML 1,000 ML IV STA ×2 (11:39→11:58)
[2022-05-09] MEDS ORDERED: Sodium Chloride 0.9% 1000 ML 0 ML ONE (11:39)
[2022-05-09 11:45] LABS: ALBUMIN 4.2 g/dL (3.5-5.0); ALKALINE PHOSPHATASE 69 U/L (38-126); ANION GAP 10.1 MEQ/L (5-15); BLOOD UREA NITROGEN 12 mg/dL (7-17); CHLORIDE 103 mmol/L (98-107); Carbon Dioxide 30 mmol/L (22-30); Creatinine 1 0.56 mg/dL (0.52-1.04); EST GLOMERULAR FILTRATION RATE > 60.0 ML/MIN; Glucose 125 mg/dL (74-106); Potassium 4.1 mmol/L (3.5-5.1); SGOT/AST 71 U/L (14-36); SGPT/ALT 24 U/L (0-35); SODIUM 139 mmol/L (137-145); Total Protein 7.4 g/dL (6.3-8.2)
--- NOTE | 2022-05-09 12:02 | ERPHSYRPT ---
- History of Present Illness Time Seen by Provider: 05/09/22 10:36 Source: patient, family Exam Limitations: no limitations Patient Subjective Stated Complaint: Pt began period a a week early today and woke in a pool of standing blood and when she stood it ran down her legs, pt states that she is passing clots the size of quarters, pt is sexually active and is not on control and so she may be , pt has went through 3 super tampons since 0730 today Triage Nursing Assessment: Pt brought to the ER by her mother, trey cano, denies pain at this time due to taking IBU earlier but had been cramping badly, pulses normal, skin n/w/d, doesn't appear to be in any distress Physician History: 22 years old female with history of Janet's not on any medication, type 1 diabetes mellitus fairly controlled presented in the ER with chief complaint of heavy vaginal bleeding. Patient reports her routine cycle is due in 4 days but this morning she woke up with the pool of blood and also passed few clots about the size of a coin. She has 3 tampon change in less than 2 hours. Denies any dizziness lightheadedness, chest pain palpitations or shortness of breath. Does report having some pelvic cramping. Unsure about being but is sexually active. Does have history of heavy menstrual bleed but not like this. Timing/Duration: today, intermittent, sudden Activites at Onset: rest, sleep Quality: cramping Pain Radiation: none Severity of Pain-Max: none Severity of Pain-Current: none Prior abdominal problems: none Sexual intercourse history: single partner Modifying Factors: Improves With: nothing Associated Symptoms: abdominal pain Allergies/Adverse Reactions: nickel [Nickel] Allergy (Verified 05/09/22 10:57) Rash Home Medications: Insulin Aspart (Niacinamide) [Fiasp 100 Unit/ml Vial] 0 unit IM UD 03/21/19 [History] Hx Tetanus, Diphtheria Vaccination/Date Given: Yes Hx Influenza Vaccination/Date Given: No Hx Pneumococcal Vaccination/Date Given: No Travel Risk - International Travel Have you traveled outside of the country in past 3 weeks: No - Coronavirus Screening Are you exhibiting any of the following symptoms?: No Close contact with a COVID-19 positive Pt in past 14-21 Days: No - Vaccine Status Have you recieved a Covid-19 vaccination: No - Review of Systems Constitutional: No Symptoms Eyes: No Symptoms Ears, Nose, & Throat: No Symptoms Respiratory: No Symptoms Cardiac: No Symptoms Abdominal/Gastrointestinal: No Symptoms Genitourinary Symptoms: Vaginal Bleeding Musculoskeletal: No Symptoms Skin: No Symptoms Neurological: No Symptoms Endocrine: No Symptoms Hematologic/Lymphatic: No Symptoms - Past Medical History Pertinent Past Medical History: Yes Neurological History: No Pertinent History ENT History: No Pertinent History Cardiac History: No Pertinent History Respiratory History: Asthma Endocrine Medical History: Diabetes Type I, Hypothyroidism Musculoskeletal History: No Pertinent History GI Medical History: No Pertinent History History: No Pertinent History Psycho-Social History: No Pertinent History Female Reproductive Disorders: No Pertinent History Other Medical History: PT. HAS JANET'S DX BUT NOT ON THYROID MED. - Past Surgical History Past Surgical History: Yes Neuro Surgical History: No Pertinent History Cardiac: No Pertinent History Respiratory: No Pertinent History Gastrointestinal: No Pertinent History Genitourinary: No Pertinent History Musculoskeletal: No Pertinent History Female Surgical History: No Pertinent History Other Surgical History: . - Social History Smoking Status: Current every day smoker How long have you smoked: years Exposure to second hand smoke: No Drug Use: none Patient Lives Alone: No - Female History Hx Last Menstrual Period: now Hx Now: No - Nursing Vital Signs Nursing Vital Signs: Initial Vital Signs Temperature 98.2 F 05/09/22 10:31 Pulse Rate 94 H 05/09/22 10:31 Blood Pressure 127/82 05/09/22 10:31 O2 Sat by Pulse Oximetry 98 05/09/22 10:31 Pain Scale Pain Intensity 0 - Physical Exam General Appearance: no apparent distress, alert Eye Exam: PERRL/EOMI Ears, Nose, Throat Exam: normal ENT inspection Neck Exam: normal inspection, full range of motion Respiratory Exam: normal breath sounds, lungs clear Cardiovascular Exam: regular rate/rhythm, normal heart sounds Gastrointestinal/Abdomen Exam: soft, normal bowel sounds, No tenderness Pelvic Exam: other (Minimal dark blood in vaginal vault with no clots), No adnexal tenderness, No cervical motion tenderness, No uterine tenderness Back Exam: normal inspection Extremity Exam: normal inspection, normal range of motion Neurologic Exam: alert, oriented x 3, cooperative Skin Exam: normal color SpO2 Interpretation: normal SpO2: 97 O2 Delivery: Room Air Ordered Tests: Active Orders 24 hr Category Date Time Status CBC W DIFF Stat Lab 11/10/22 11:00 Completed CMP Stat Lab 05/09/22 11:00 Completed HCG,QUALITATIVE URINE Stat Lab 05/09/22 11:00 Completed UA W/RFX CULTURE Stat Lab 05/09/22 11:00 Completed Medication Summary Discontinued Medications Generic Name Dose Route Start Last Admin Trade Name Juanito PRN Reason Stop Dose Admin Sodium Chloride 1,000 mls @ 999 mls/hr 05/09/22 11:05 05/09/22 11:58 Sodium Chloride 0.9% 1000 Ml IV 05/09/22 12:05 Not Given .Q1H1M STA Sodium Chloride Confirm 05/09/22 11:39 Sodium Chloride 0.9% 1000 Ml Administered 05/09/22 11:40 Dose 1,000 mls @ ud .ROUTE .[facility] ONE Lab/Rad Data: Laboratory Result Diagrams 05/09/22 11:00 05/09/22 11:00 Laboratory Results 05/09/22 05/09/22 05/09/22 Range/Units 11:00 11:00 11:00 WBC 7.8 (4.0-10.5) x10^3/uL RBC 5.23 (4.1-5.4) x10^6/uL Hgb 14.9 (12.0-16.0) g/dL Hct 45.9 (35-47) % MCV 87.8 (78-100) fL MCH 28.5 (26-32) pg MCHC 32.5 (32-36) g/dL RDW 12.4 (11.5-14.0) % Plt Count 256 (150-450) x10^3/uL MPV 10.9 (7.5-11.0) fL Gran % 62.4 (36.0-66.0) % Immature Gran % (Auto) 0.1 (0.00-0.4) % Nucleat RBC Rel Count 0.0 (0.00-0.1) % Eos # (Auto) 0.07 (0-0.5) x10^3/uL Immature Gran # (Auto) 0.01 (0.00-0.03) x10^3u/L Absolute Lymphs (auto) 2.33 (1.0-4.6) x10^3/uL Absolute Monos (auto) 0.49 (0.0-1.3) x10^3/uL Absolute Nucleated RBC 0.00 (0.00-0.01) x10^3u/L Lymphocytes % 29.8 (24.0-44.0) % Monocytes % 6.3 (0.0-12.0) % Eosinophils % 0.9 (0.00-5.0) % Basophils % 0.5 (0.0-0.4) % Absolute Granulocytes 4.88 (1.4-6.9) x10^3/uL Basophils # 0.04 (0-0.4) x10^3/uL Sodium 139 (137-145) mmol/L Potassium 4.1 (3.5-5.1) mmol/L Chloride 103 (98-107) mmol/L Carbon Dioxide 30 (22-30) mmol/L Anion Gap 10.1 (5-15) MEQ/L BUN 12 (7-17) mg/dL Creatinine 0.56 (0.52-1.04) mg/dL Estimated GFR > 60.0 ML/MIN Glucose 125 H (74-106) mg/dL Calcium 9.0 (8.4-10.2) mg/dL Total Bilirubin 0.50 (0.2-1.3) mg/dL AST 71 H (14-36) U/L ALT 24 (0-35) U/L Alkaline Phosphatase 69 (38-126) U/L Serum Total Protein 7.4 (6.3-8.2) g/dL Albumin 4.2 (3.5-5.0) g/dL Urinalys Dipstick Clnc MAIN LAB Urine Color PINK (YELLOW) Urine Appearance CLEAR (CLEAR) Urine pH 7.0 (5-6) Ur Specific [place] 1.015 (1.005-1.025) POC Urine Protein Conf NEGATIVE (Negative) Urine Ketones NEGATIVE (NEGATIVE) Urine Nitrite NEGATIVE (NEGATIVE) Urine Bilirubin NEGATIVE (NEGATIVE) Urine Urobilinogen 0.2 (0-1) mg/dL Urine Leukocytes NEGATIVE (NEGATIVE) Urine WBC (Auto) NONE (0-5) /HPF Urine RBC (Auto) 3-5 A (0-2) /HPF U Epithel Cells (Auto) NONE (FEW) /HPF Urine Bacteria (Auto) NONE (NEGATIVE) /HPF Urine RBC LARGE A (0-5) Berhane/ul Ur Culture Indicated? NO Urine Glucose 100 A (NEGATIVE) mg/dL Urine HCG, Qual (Negative) 05/09/22 Range/Units 11:00 WBC (4.0-10.5) x10^3/uL RBC (4.1-5.4) x10^6/uL Hgb (12.0-16.0) g/dL Hct (35-47) % MCV (78-100) fL MCH (26-32) pg MCHC (32-36) g/dL RDW (11.5-14.0) % Plt Count (150-450) x10^3/uL MPV (7.5-11.0) fL Gran % (36.0-66.0) % Immature Gran % (Auto) (0.00-0.4) % Nucleat RBC Rel Count (0.00-0.1) % Eos # (Auto) (0-0.5) x10^3/uL Immature Gran # (Auto) (0.00-0.03) x10^3u/L Absolute Lymphs (auto) (1.0-4.6) x10^3/uL Absolute Monos (auto) (0.0-1.3) x10^3/uL Absolute Nucleated RBC (0.00-0.01) x10^3u/L Lymphocytes % (24.0-44.0) % Monocytes % (0.0-12.0) % Eosinophils % (0.00-5.0) % Basophils % (0.0-0.4) % Absolute Granulocytes (1.4-6.9) x10^3/uL Basophils # (0-0.4) x10^3/uL Sodium (137-145) mmol/L Potassium (3.5-5.1) mmol/L Chloride (98-107) mmol/L Carbon Dioxide (22-30) mmol/L Anion Gap (5-15) MEQ/L BUN (7-17) mg/dL Creatinine (0.52-1.04) mg/dL Estimated GFR ML/MIN Glucose (74-106) mg/dL Calcium (8.4-10.2) mg/dL Total Bilirubin (0.2-1.3) mg/dL AST (14-36) U/L ALT (0-35) U/L Alkaline Phosphatase (38-126) U/L Serum Total Protein (6.3-8.2) g/dL Albumin (3.5-5.0) g/dL Urinalys Dipstick Clnc Urine Color (YELLOW) Urine Appearance (CLEAR) Urine pH (5-6) Ur Specific [place] (1.005-1.025) POC Urine Protein Conf (Negative) Urine Ketones (NEGATIVE) Urine Nitrite (NEGATIVE) Urine Bilirubin (NEGATIVE) Urine Urobilinogen (0-1) mg/dL Urine Leukocytes (NEGATIVE) Urine WBC (Auto) (0-5) /HPF Urine RBC (Auto) (0-2) /HPF U Epithel Cells (Auto) (FEW) /HPF Urine Bacteria (Auto) (NEGATIVE) /HPF Urine RBC (0-5) [place]/ul Ur Culture Indicated? Urine Glucose (NEGATIVE) mg/dL Urine HCG, Qual NEGATIVE (Negative) - Progress Progress: improved Air Movement: good Progress Note: 05/09/22 12:01 She is offered fluids which she refused on exam she does not have any excessive pooling of blood, clots and minimal dark-colored blood like usual menstrual blood. Has normal white count and hemoglobin. Hemodynamically stable. Recommended outpatient [employer] follow-up. Patient wants to follow-up with Dr. Kayleen rogel at [place]. Discussed signs symptoms of worsening needing return to ER with standing. Blood Culture(s) Obtained: No Antibiotics given: No Counseled pt/family regarding: lab results, diagnosis, need for follow-up - Departure Departure Disposition: Home Clinical Impression: Menorrhagia with irregular cycle Condition: Stable Critical Care Time: No Referrals: DMITRIY LUCIANO [Primary Care Provider] - Follow up/PCP as directed (1 2 days for reevaluation) Instructions: Heavy Periods (DC), Menstrual Cramps (DC) Additional Instructions: Take Tylenol/ibuprofen as needed. Keep yourself well-hydrated with plenty of fluids. Follow-up with your primary care/[facility] for reevaluation in 1 to 2 days. Return to ER for worsening bleeding, cramping, feeling dizzy lightheaded etc.
[2022-05-09 12:20] VITALS: BP 103/65; PULSE 82; O2SAT 96
== END 2022-05-09 11:55 | disposition home or self-care (01) ==
LOC: ED 10:26
DX: N92.1 Excessive and frequent menstruation with irregular cycle (principal); R10.2 Pelvic and perineal pain; E10.9 Type 1 diabetes mellitus without complications; Z72.0 Tobacco use; Z79.4 Long term (current) use of insulin; Z28.310 Unvaccinated for COVID-19
CPT/HCPCS: 36415; 80053; 81015; 81025; 85025; 99282

== ENCOUNTER 2022-09-11 09:12 | Emergency (ER) | payer OTHER ==
[2022-09-11 09:35] LABS: Absolute Neutrophil Ct (ANC) 5.24 x10^3/uL (1.4-6.9); BASOPHIL % 0.3 % (0.0-0.4); Basophil (Absolute #) 0.02 x10^3/uL (0-0.4); Eosinophil % 0.8 % (0.00-5.0); Eosinophil (Absolute #) 0.06 x10^3/uL (0-0.5); Hematocrit 46.4 % (35-47); Hemoglobin 15.4 g/dL (12.0-16.0); IMMATURE GRAN # 0.05 x10^3u/L (0.00-0.03); IMMATURE GRAN % 0.6 % (0.00-0.4); Lymphocytes % 26.4 % (24.0-44.0); Mean Cell Volume 87.9 fL (78-100); Mean Corpuscular Hemoglobin 29.2 pg (26-32); Mean Corpuscular Hgb Concent. 33.2 g/dL (32-36); Mean Platelet Volume 10.3 fL (7.5-11.0); Monocyte (Absolute #) 0.49 x10^3/uL (0.0-1.3); Monocytes % 6.2 % (0.0-12.0); Neutrophil % 65.7 % (36.0-66.0); Platelet Count 250 x10^3/uL (150-450); Red Blood Count 5.28 x10^6/uL (4.1-5.4); Red Cell Distribution Width 12.1 % (11.5-14.0)
[2022-09-11 09:49] LABS: ALBUMIN 4.5 g/dL (3.5-5.0); ALKALINE PHOSPHATASE 82 U/L (38-126); ANION GAP 13.3 MEQ/L (5-15); BLOOD UREA NITROGEN 10 mg/dL (7-17); CHLORIDE 103 mmol/L (98-107); Carbon Dioxide 26 mmol/L (22-30); Creatinine 1 0.52 mg/dL (0.52-1.04); EST GLOMERULAR FILTRATION RATE > 60.0 ML/MIN; Glucose 125 mg/dL (74-106); Potassium 3.8 mmol/L (3.5-5.1); SGOT/AST 21 U/L (14-36); SGPT/ALT 23 U/L (0-35); SODIUM 139 mmol/L (137-145); Total Protein 7.7 g/dL (6.3-8.2)
[2022-09-11 09:51] LABS: Appearance Clear (Clear); Bilirubin Negative (Negative); Blood Negative (Negative); Glucose, Urine Negative (Negative); Ketones Negative (Negative); Leukocyte Esterase Negative (Negative); Nitrite Negative (Negative); Protein,Urine Dip Negative (Negative); Urobilinogen 0.2 mg/dL (0.2)
--- NOTE | 2022-09-11 10:01 | ERPHSYRPT ---
- History of Present Illness Time Seen by Provider: 09/11/22 09:50 Source: patient Exam Limitations: no limitations Patient Subjective Stated Complaint: PT states "I woke up this morning at 4 and my sugar read hi so I took a corrective dose and now it is lower but I have k eytones in my urine so Rosey lopez, my fruit distributor, told me to come here." Triage Nursing Assessment: PT presented alert and oriented X 3, skin pwd. Pt ambulates with an upright steady gait, able to speak in clear full sentences pt in no apparent respiratory distress. Physician History: Patient is a 22-year-old female presents to our ED as a referral from her fruit distributor Rosey Lopez. Patient is a diabetic and states that that she was alerted that her blood sugar was high at approximately 4 AM. Patient took a dose of insulin. She later checked her urine and observed ketones. Patient requesting to be evaluated for possible DKA. She otherwise feels well. She has no other symptoms. Patient's recheck of her blood sugar at home after insulin administration was glucose of 94. Patient currently asymptomatic she voices no other complaints or concerns at this time. Portions of this note were created with voice recognition technology. There may be grammatical, spelling, punctuation or sound alike errors Timing/Duration: today Severity: mild Modifying Factors: Improves With: nothing Associated Symptoms: denies symptoms Allergies/Adverse Reactions: nickel [Nickel] Allergy (Verified 05/09/22 10:57) Rash Home Medications: Insulin Aspart (Niacinamide) [Fiasp 100 Unit/ml Vial] 0 unit IM UD 03/21/19 [History] Hx Tetanus, Diphtheria Vaccination/Date Given: Yes Hx Influenza Vaccination/Date Given: No Hx Pneumococcal Vaccination/Date Given: No Immunizations Up to Date: Yes Travel Risk - International Travel Have you traveled outside of the country in past 3 weeks: No - Coronavirus Screening Are you exhibiting any of the following symptoms?: No Close contact with a COVID-19 positive Pt in past 14-21 Days: No - Vaccine Status Have you recieved a Covid-19 vaccination: No - Review of Systems Constitutional: No Symptoms, No Fever, No Chills Eyes: No Symptoms Ears, Nose, & Throat: No Symptoms Respiratory: No Symptoms, No Cough, No Dyspnea Cardiac: No Symptoms, No Chest Pain, No Edema, No Syncope Abdominal/Gastrointestinal: No Symptoms, No Abdominal Pain, No Nausea, No Vomiting, No Diarrhea Genitourinary Symptoms: No Symptoms, No Dysuria Musculoskeletal: No Symptoms, No Back Pain, No Neck Pain Skin: No Symptoms, No Rash Neurological: No Symptoms, No Dizziness, No Focal Weakness, No Sensory Changes Psychological: No Symptoms Endocrine: No Symptoms Hematologic/Lymphatic: No Symptoms Immunological/Allergic: No Symptoms All Other Systems: Reviewed and Negative - Past Medical History Pertinent Past Medical History: Yes Neurological History: No Pertinent History ENT History: No Pertinent History Cardiac History: No Pertinent History Respiratory History: Asthma Endocrine Medical History: Diabetes Type I, Hypothyroidism Musculoskeletal History: No Pertinent History GI Medical History: No Pertinent History History: No Pertinent History Psycho-Social History: No Pertinent History Female Reproductive Disorders: No Pertinent History Other Medical History: PT. HAS BRIT'S DX BUT NOT ON THYROID MED. - Past Surgical History Past Surgical History: Yes Neuro Surgical History: No Pertinent History Cardiac: No Pertinent History Respiratory: No Pertinent History Gastrointestinal: No Pertinent History Genitourinary: No Pertinent History Musculoskeletal: No Pertinent History Female Surgical History: No Pertinent History Other Surgical History: . - Social History Smoking Status: Current every day smoker How long have you smoked: years Exposure to second hand smoke: No Drug Use: none Patient Lives Alone: No - Female History Hx Last Menstrual Period: implant 07/31/2022 Hx Now: No - Nursing Vital Signs Nursing Vital Signs: Initial Vital Signs Temperature 97.5 F 09/11/22 09:16 Pulse Rate 98 H 09/11/22 09:16 Respiratory Rate 20 09/11/22 09:16 Blood Pressure 127/94 09/11/22 09:16 O2 Sat by Pulse Oximetry 100 09/11/22 09:16 Pain Scale Pain Intensity 4 - Physical Exam General Appearance: no apparent distress, alert Eye Exam: PERRL/EOMI, eyes nml inspection Ears, Nose, Throat Exam: normal ENT inspection, TMs normal, pharynx normal, moist mucous membranes Neck Exam: normal inspection, non-tender, supple, full range of motion Respiratory Exam: normal breath sounds, lungs clear, No respiratory distress Cardiovascular Exam: regular rate/rhythm, normal heart sounds, normal peripheral pulses Gastrointestinal/Abdomen Exam: soft, normal bowel sounds, No tenderness, No mass Back Exam: normal inspection, normal range of motion, No CVA tenderness, No vertebral tenderness Extremity Exam: normal inspection, normal range of motion, pelvis stable Neurologic Exam: alert, oriented x 3, cooperative, normal mood/affect, nml cerebellar function, nml station & gait, sensation nml, No motor deficits Skin Exam: normal color, warm, dry, No rash Lymphatic Exam: No adenopathy SpO2 Interpretation: normal SpO2: 100 O2 Delivery: Room Air - Course Nursing assessment & vital signs reviewed: Yes Ordered Tests: Active Orders 24 hr Category Date Time Status Pulse Oximetry (ED) STAT Care 09/11/22 09:19 Active CBC W DIFF Stat Lab 09/11/22 09:33 Completed CMP Stat Lab 09/11/22 09:33 Completed POCT GLUCOSE Stat Lab 09/11/22 09:16 Completed UA W/RFX UR CULTURE Stat Lab 09/11/22 09:19 Completed Lab/Rad Data: Laboratory Result Diagrams 09/11/22 09:33 09/11/22 09:33 Laboratory Results 09/11/22 09/11/22 09/11/22 Range/Units 09:33 09:33 09:19 WBC 8.0 (4.0-10.5) x10^3/uL RBC 5.28 (4.1-5.4) x10^6/uL Hgb 15.4 (12.0-16.0) g/dL Hct 46.4 (35-47) % MCV 87.9 (78-100) fL MCH 29.2 (26-32) pg MCHC 33.2 (32-36) g/dL RDW 12.1 (11.5-14.0) % Plt Count 250 (150-450) x10^3/uL MPV 10.3 (7.5-11.0) fL Gran % 65.7 (36.0-66.0) % Immature Gran % (Auto) 0.6 H (0.00-0.4) % Nucleat RBC Rel Count 0.0 (0.00-0.1) % Eos # (Auto) 0.06 (0-0.5) x10^3/uL Immature Gran # (Auto) 0.05 H (0.00-0.03) x10^3u/L Absolute Lymphs (auto) 2.10 (1.0-4.6) x10^3/uL Absolute Monos (auto) 0.49 (0.0-1.3) x10^3/uL Absolute Nucleated RBC 0.00 (0.00-0.01) x10^3u/L Lymphocytes % 26.4 (24.0-44.0) % Monocytes % 6.2 (0.0-12.0) % Eosinophils % 0.8 (0.00-5.0) % Basophils % 0.3 (0.0-0.4) % Absolute Granulocytes 5.24 (1.4-6.9) x10^3/uL Basophils # 0.02 (0-0.4) x10^3/uL Sodium 139 (137-145) mmol/L Potassium 3.8 (3.5-5.1) mmol/L Chloride 103 (98-107) mmol/L Carbon Dioxide 26 (22-30) mmol/L Anion Gap 13.3 (5-15) MEQ/L BUN 10 (7-17) mg/dL Creatinine 0.52 (0.52-1.04) mg/dL Estimated GFR > 60.0 ML/MIN Glucose 125 H (74-106) mg/dL POC Glucometer (74 to 106) mg/dL Calcium 9.0 (8.4-10.2) mg/dL Total Bilirubin 0.40 (0.2-1.3) mg/dL AST 21 (14-36) U/L ALT 23 (0-35) U/L Alkaline Phosphatase 82 (38-126) U/L Serum Total Protein 7.7 (6.3-8.2) g/dL Albumin 4.5 (3.5-5.0) g/dL Urine Color Yellow (Yellow) Urine Appearance Clear (Clear) Urine pH 8.0 (4.6-8.0) Ur Specific [place] 1.010 (1.005-1.030) Urine Protein Negative (Negative) Urine Glucose (UA) Negative (Negative) mg/dL Urine Ketones Negative (Negative) Urine Blood Negative (Negative) Urine Nitrite Negative (Negative) Urine Bilirubin Negative (Negative) Urine Urobilinogen 0.2 (0.2) mg/dL Ur Leukocyte Esterase Negative (Negative) Urine Microscopic RBC NONE SEEN (0-5) /HPF Urine Microscopic WBC 0-2 (0-5) /HPF Ur Epithelial Cells Few (None Seen) /HPF Urine Bacteria None Seen (None Seen) /HPF Urine Culture Reflexed NO (NO) 09/11/22 Range/Units 09:16 WBC (4.0-10.5) x10^3/uL RBC (4.1-5.4) x10^6/uL Hgb (12.0-16.0) g/dL Hct (35-47) % MCV (78-100) fL MCH (26-32) pg MCHC (32-36) g/dL RDW (11.5-14.0) % Plt Count (150-450) x10^3/uL MPV (7.5-11.0) fL Gran % (36.0-66.0) % Immature Gran % (Auto) (0.00-0.4) % Nucleat RBC Rel Count (0.00-0.1) % Eos # (Auto) (0-0.5) x10^3/uL Immature Gran # (Auto) (0.00-0.03) x10^3u/L Absolute Lymphs (auto) (1.0-4.6) x10^3/uL Absolute Monos (auto) (0.0-1.3) x10^3/uL Absolute Nucleated RBC (0.00-0.01) x10^3u/L Lymphocytes % (24.0-44.0) % Monocytes % (0.0-12.0) % Eosinophils % (0.00-5.0) % Basophils % (0.0-0.4) % Absolute Granulocytes (1.4-6.9) x10^3/uL Basophils # (0-0.4) x10^3/uL Sodium (137-145) mmol/L Potassium (3.5-5.1) mmol/L Chloride (98-107) mmol/L Carbon Dioxide (22-30) mmol/L Anion Gap (5-15) MEQ/L BUN (7-17) mg/dL Creatinine (0.52-1.04) mg/dL Estimated GFR ML/MIN Glucose (74-106) mg/dL POC Glucometer 112 H (74 to 106) mg/dL Calcium (8.4-10.2) mg/dL Total Bilirubin (0.2-1.3) mg/dL AST (14-36) U/L ALT (0-35) U/L Alkaline Phosphatase (38-126) U/L Serum Total Protein (6.3-8.2) g/dL Albumin (3.5-5.0) g/dL Urine Color (Yellow) Urine Appearance (Clear) Urine pH (4.6-8.0) Ur Specific [place] (1.005-1.030) Urine Protein (Negative) Urine Glucose (UA) (Negative) mg/dL Urine Ketones (Negative) Urine Blood (Negative) Urine Nitrite (Negative) Urine Bilirubin (Negative) Urine Urobilinogen (0.2) mg/dL Ur Leukocyte Esterase (Negative) Urine Microscopic RBC (0-5) /HPF Urine Microscopic WBC (0-5) /HPF Ur Epithelial Cells (None Seen) /HPF Urine Bacteria (None Seen) /HPF Urine Culture Reflexed (NO) - Progress Progress: improved Progress Note: Patient 22-year-old female history of type 1 diabetes presents to our ED as a referral from her fruit distributor for evaluation of possible DKA. Patient observed her blood sugar to be elevated in the morning. She checked her urine and tested positive for ketones. Testing in our ED included CBC CMP UA [id number] glucose. Patient's physical exam was negative. Laboratory work- up unremarkable. UA negative for ketones. Blood sugar slightly elevated at 125. No anion gap acidosis. Patient's presenting problem was acute. Vital stable. Complexity of problems addressed was low. Acute uncomplicated. No critical care time. Complexity of data reviewed and analyzed was moderate. Testing ordered. Testing reviewed. Laboratory work-up as well as urinalysis was independently interpreted by Dr. Daley to verify no DKA. Risk of complications and or risk of morbidity/mortality of patient management is minimal. No specific therapy is indicated. No indication for further work- up at this time. Will discharge home. Patient voices no other complaints or concerns at this time. She agrees to follow-up with her primary care doctor within 48 hours for reevaluation. Discharge diagnosis is hyperglycemia, well adult exam. Portions of this note were created with voice recognition technology. There may be grammatical, spelling, punctuation or sound alike errors 09/11/22 10:12 Counseled pt/family regarding: lab results, diagnosis, need for follow-up - Departure Departure Disposition: Home Clinical Impression: Hyperglycemia, Well adult health check Condition: Stable Critical Care Time: No Referrals: DMITRIY LUCIANO [Primary Care Provider] - Follow up/PCP as directed Additional Instructions: Discharge/Care Plan ANANT STEPHENS STEVENDIANNE MANDY was seen on 09/11/22 in the Emergency Room. The patient was counseled regarding Diagnosis,Lab results, Imaging studies, need for follow up and when to return to the Emergency Room. Prescriptions given: Discharge Note I have spoken with the patient and/or caregivers. I have explained the patient's condition, diagnosis and treatment plan based on the information available to me at this time. I have answered the patient's and/or caregiver's questions and addressed any concerns. The patient and/or caregivers have as good understanding of the patient's diagnosis, condition and treatment plan as can be expected at this point. The vital signs have been stable. The patient's condition is stable and appropriate for discharge from the emergency department. The patient will pursue further outpatient evaluation with the primary care physician or other designated or consulting physician as outlined in the discharge instructions. The patient and/or caregivers are agreeable to this plan of care and follow-up instructions have been explained in detail. The patient and/or caregivers have received these instruction. The patient/and or caregivers are aware that any significant change in condition or worsening of symptoms should prompt an immediate return to this or the closest emergency department or call 911.
[2022-09-11 10:03] LABS: ADD URINE CULTURE? NO (NO); Bacteria None Seen /HPF (None Seen); Epithelial Cells Few /HPF (None Seen); RBC NONE SEEN /HPF (0-5); WBC 0-2 /HPF (0-5)
[2022-09-11 10:09] VITALS: O2SAT 100
[2022-09-11 10:15] VITALS: BP 114/90; PULSE 80
== END 2022-09-11 10:15 | disposition home or self-care (01) ==
LOC: ED 09:12
DX: E10.65 Type 1 diabetes mellitus with hyperglycemia (principal); E10.649 Type 1 diabetes mellitus with hypoglycemia without coma; Z28.310 Unvaccinated for COVID-19; Z72.0 Tobacco use
CPT/HCPCS: 36415; 80053; 81001; 82947; 85025; 94760; 99283

== ENCOUNTER 2023-02-02 19:57 | Emergency (ER) | payer OTHER ==
[2023-02-02 20:44] VITALS: TEMP 97.7
[2023-02-02] MEDS ORDERED: Sodium Chloride 0.9% 1000 ML 1,000 ML IV STA (20:46)
[2023-02-02] MEDS ORDERED: HUMULIN R IV ONE (20:47)
[2023-02-02] MEDS ORDERED: Sodium Chloride 0.9% 1000 ML 1,000 ML ONE (20:52)
[2023-02-02 20:54] LABS: Absolute Neutrophil Ct (ANC) 7.94 x10^3/uL (1.4-6.9); BASOPHIL % 0.5 % (0.0-0.4); Basophil (Absolute #) 0.05 x10^3/uL (0-0.4); Eosinophil % 0.5 % (0.00-5.0); Eosinophil (Absolute #) 0.06 x10^3/uL (0-0.5); Hematocrit 46.6 % (35-47); Hemoglobin 15.7 g/dL (12.0-16.0); IMMATURE GRAN # 0.03 x10^3u/L (0.00-0.03); IMMATURE GRAN % 0.3 % (0.00-0.4); Lymphocyte (Absolute #) 2.36 x10^3/uL (1.0-4.6); Lymphocytes % 21.4 % (24.0-44.0); Mean Cell Volume 88.1 fL (78-100); Mean Corpuscular Hemoglobin 29.7 pg (26-32); Mean Corpuscular Hgb Concent. 33.7 g/dL (32-36); Mean Platelet Volume 10.8 fL (7.5-11.0); Monocyte (Absolute #) 0.59 x10^3/uL (0.0-1.3); Monocytes % 5.3 % (0.0-12.0); Platelet Count 299 x10^3/uL (150-450); Red Blood Count 5.29 x10^6/uL (4.1-5.4); Red Cell Distribution Width 12.6 % (11.5-14.0)
[2023-02-02 20:57] LABS: HCG URINE TEST NEGATIVE (NEGATIVE)
[2023-02-02 21:00] LABS: Appearance Clear (Clear); Bacteria None Seen /HPF (None Seen); Bilirubin Negative (Negative); Blood Negative (Negative); Epithelial Cells None Seen /HPF (None Seen); Glucose, Urine >=1000 mg/dL (Negative); Hyaline Casts NONE SEEN /LPF (0-2); Ketones 15 (Negative); Leukocyte Esterase Negative (Negative); Nitrite Negative (Negative); Protein,Urine Dip Negative (Negative); RBC 0-2 /HPF (0-5); Specific Gravity >=1.030 (1.005-1.030); Urobilinogen 0.2 mg/dL (0.2); WBC 0-2 /HPF (0-5)
[2023-02-02 21:06] LABS: ADD URINE CULTURE? NO (NO)
[2023-02-02 21:08] LABS: ALBUMIN 4.4 g/dL (3.5-5.0); ALKALINE PHOSPHATASE 77 U/L (38-126); AMYLASE 54 U/L (30-110); ANION GAP 11.2 MEQ/L (5-15); BLOOD UREA NITROGEN 12 mg/dL (7-17); CHLORIDE 99 mmol/L (98-107); Calcium 9.2 mg/dL (8.4-10.2); Carbon Dioxide 29 mmol/L (22-30); EST GLOMERULAR FILTRATION RATE > 60.0 ML/MIN; Glucose 332 mg/dL (74-106); LIPASE 21 U/L (23-300); SGOT/AST 24 U/L (14-36); SGPT/ALT 21 U/L (0-35); SODIUM 135 mmol/L (137-145); Total Protein 7.4 g/dL (6.3-8.2)
--- NOTE | 2023-02-02 21:29 | ERPHSYRPT ---
- History of Present Illness Time Seen by Provider: 02/02/23 21:23 Source: patient, family Exam Limitations: no limitations Patient Subjective Stated Complaint: hyperglycemia Triage Nursing Assessment: pt to ED c/o hyperglycemia onset this afternoon when waking up. noticed hyperglycemia around 1630 today. 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 blood sugar read 371 on monitor on arrival. denies pain or any other complaints. pt states she did drink some beer last night, but not in excessive amounts. Physician History: Pt is on insulin pump and had been doing well but noted high readings today and had some headache and nausea but no other symptoms, no V. No fever, no abd pain. No respiratory symptoms. No known illness. Normal neuro exam, chest clear ht reg without M, abd soft nontender without peritoneal signs or masses or distension. no skin lesions seen. No complaint of injury. Timing/Duration: today Severity: moderate Associated Symptoms: headaches (mild - no hx trauma) Allergies/Adverse Reactions: nickel [Nickel] Allergy (Verified 02/02/23 20:21) Rash Home Medications: Insulin Aspart (Niacinamide) [Fiasp 100 Unit/ml Vial] 0 unit IM UD 03/21/19 [History] Phentermine HCl 37.5 mg PO DAILY 02/02/23 [History] Hx Tetanus, Diphtheria Vaccination/Date Given: Yes Hx Influenza Vaccination/Date Given: No Hx Pneumococcal Vaccination/Date Given: No Immunizations Up to Date: Yes Travel Risk - International Travel Have you traveled outside of the country in past 3 weeks: No - Coronavirus Screening Are you exhibiting any of the following symptoms?: Yes Symptoms: Headaches/Body Aches/Fatigue Close contact with a COVID-19 positive Pt in past 14-21 Days: No - Vaccine Status Have you recieved a Covid-19 vaccination: No - Review of Systems Constitutional: No Fever, No Chills Eyes: No Symptoms Ears, Nose, & Throat: No Symptoms Respiratory: No Symptoms, No Cough, No Dyspnea Cardiac: No Symptoms, No Chest Pain, No Edema, No Syncope Abdominal/Gastrointestinal: No Symptoms, No Abdominal Pain, No Nausea, No Vomiting, No Diarrhea Genitourinary Symptoms: No Symptoms, No Dysuria Musculoskeletal: No Symptoms, No Back Pain, No Neck Pain Skin: No Symptoms, No Rash Neurological: Headache, No Dizziness, No Focal Weakness, No Sensory Changes Psychological: No Symptoms Endocrine: No Symptoms Hematologic/Lymphatic: No Symptoms Immunological/Allergic: No Symptoms All Other Systems: Reviewed and Negative - Past Medical History Pertinent Past Medical History: Yes Neurological History: No Pertinent History ENT History: No Pertinent History Cardiac History: No Pertinent History Respiratory History: Asthma Endocrine Medical History: Diabetes Type I, Hypothyroidism Musculoskeletal History: No Pertinent History GI Medical History: No Pertinent History History: No Pertinent History Psycho-Social History: No Pertinent History Female Reproductive Disorders: No Pertinent History Other Medical History: PT. HAS BRIT'S DX BUT NOT ON THYROID MED. - Past Surgical History Past Surgical History: Yes Neuro Surgical History: No Pertinent History Cardiac: No Pertinent History Respiratory: No Pertinent History Gastrointestinal: No Pertinent History Genitourinary: No Pertinent History Musculoskeletal: No Pertinent History Female Surgical History: No Pertinent History Other Surgical History: . - Social History Smoking Status: Current every day smoker How long have you smoked: years Exposure to second hand smoke: No Drug Use: none Patient Lives Alone: No - Female History Hx Last Menstrual Period: current Hx Now: No - Nursing Vital Signs Nursing Vital Signs: Initial Vital Signs Temperature 97.7 F 02/02/23 20:22 Pulse Rate 80 02/02/23 20:22 Respiratory Rate 18 02/02/23 20:22 Blood Pressure 118/92 02/02/23 20:22 O2 Sat by Pulse Oximetry 99 02/02/23 20:22 Pain Scale Pain Intensity 0 - Physical Exam General Appearance: no apparent distress, alert Eye Exam: PERRL/EOMI, eyes nml inspection Ears, Nose, Throat Exam: normal ENT inspection, TMs normal, pharynx normal, moist mucous membranes Neck Exam: normal inspection, non-tender, supple, full range of motion, No meningismus Respiratory Exam: normal breath sounds, lungs clear, airway intact, No respiratory distress Cardiovascular Exam: regular rate/rhythm, normal heart sounds, normal peripheral pulses Gastrointestinal/Abdomen Exam: soft, normal bowel sounds, No tenderness, No mass Pelvic Exam: not done, deferred Rectal Exam: deferred Back Exam: normal inspection, normal range of motion, No CVA tenderness, No vertebral tenderness Extremity Exam: normal inspection, normal range of motion, pelvis stable Neurologic Exam: alert, oriented x 3, cooperative, normal mood/affect, nml cerebellar function, nml station & gait, sensation nml, No motor deficits Skin Exam: normal color, warm, dry, No rash Lymphatic Exam: No adenopathy SpO2 Interpretation: normal SpO2: 97 O2 Delivery: Room Air - Course Nursing assessment & vital signs reviewed: Yes Ordered Tests: Active Orders 24 hr Category Date Time Status AMYLASE Stat Lab 02/02/23 20:48 Completed CBC W DIFF Stat Lab 02/02/23 20:48 Completed CMP Stat Lab 02/02/23 20:48 Completed HCG QUALITATIVE, URINE Stat Lab 02/02/23 20:50 Completed LIPASE Stat Lab 02/02/23 20:48 Completed Lactic Acid Stat Lab 02/02/23 21:35 Completed POCT GLUCOSE Stat Lab 02/02/23 20:05 Completed POCT GLUCOSE Stat Lab 02/02/23 21:20 Completed UA W/RFX UR CULTURE Stat Lab 02/02/23 20:50 Completed Medication Summary Discontinued Medications Generic Name Dose Route Start Last Admin Trade Name Freq PRN Reason Stop Dose Admin Sodium Chloride 1,000 mls @ 999 mls/hr 02/02/23 20:46 02/02/23 22:37 Sodium Chloride 0.9% 1000 Ml IV 02/02/23 21:46 Infused .Q1H1M STA Infusion Sodium Chloride Confirm 02/02/23 20:52 Sodium Chloride 0.9% 1000 Ml Administered 02/02/23 20:53 Dose 1,000 mls @ ud .ROUTE .STK-MED ONE Insulin Human Regular 5 unit 02/02/23 20:47 02/02/23 23:39 Insulin Regular, Human 1 Unit IV 02/02/23 20:48 Not Given STAT ONE Lab/Rad Data: Laboratory Result Diagrams 02/02/23 20:48 02/02/23 20:48 Laboratory Results 02/02/23 02/02/23 02/02/23 Range/Units 21:35 21:20 20:50 WBC (4.0-10.5) x10^3/uL RBC (4.1-5.4) x10^6/uL Hgb (12.0-16.0) g/dL Hct (35-47) % MCV (78-100) fL MCH (26-32) pg MCHC (32-36) g/dL RDW (11.5-14.0) % Plt Count (150-450) x10^3/uL MPV (7.5-11.0) fL Gran % (36.0-66.0) % Immature Gran % (Auto) (0.00-0.4) % Nucleat RBC Rel Count (0.00-0.1) % Eos # (Auto) (0-0.5) x10^3/uL Immature Gran # (Auto) (0.00-0.03) x10^3u/L Absolute Lymphs (auto) (1.0-4.6) x10^3/uL Absolute Monos (auto) (0.0-1.3) x10^3/uL Absolute Nucleated RBC (0.00-0.01) x10^3u/L Lymphocytes % (24.0-44.0) % Monocytes % (0.0-12.0) % Eosinophils % (0.00-5.0) % Basophils % (0.0-0.4) % Absolute Granulocytes (1.4-6.9) x10^3/uL Basophils # (0-0.4) x10^3/uL Sodium (137-145) mmol/L Potassium (3.5-5.1) mmol/L Chloride (98-107) mmol/L Carbon Dioxide (22-30) mmol/L Anion Gap (5-15) MEQ/L BUN (7-17) mg/dL Creatinine (0.52-1.04) mg/dL Estimated GFR ML/MIN Glucose (74-106) mg/dL POC Glucometer 236 H (74 to 106) mg/dL Lactic Acid 1.3 (0.4-2.0) Calcium (8.4-10.2) mg/dL Total Bilirubin (0.2-1.3) mg/dL AST (14-36) U/L ALT (0-35) U/L Alkaline Phosphatase (38-126) U/L Serum Total Protein (6.3-8.2) g/dL Albumin (3.5-5.0) g/dL Amylase (30-110) U/L Lipase (23-300) U/L Urine Color (Yellow) Urine Appearance (Clear) Urine pH (4.6-8.0) Ur Specific [place] (1.005-1.030) Urine Protein (Negative) Urine Glucose (UA) (Negative) mg/dL Urine Ketones (Negative) Urine Blood (Negative) Urine Nitrite (Negative) Urine Bilirubin (Negative) Urine Urobilinogen (0.2) mg/dL Ur Leukocyte Esterase (Negative) U Hyaline Cast (Auto) (0-2) /LPF Urine Microscopic RBC (0-5) /HPF Urine Microscopic WBC (0-5) /HPF Ur Epithelial Cells (None Seen) /HPF Urine Bacteria (None Seen) /HPF Urine Culture Reflexed (NO) Urine HCG, Qual NEGATIVE (NEGATIVE) 02/02/23 02/02/23 02/02/23 Range/Units 20:50 20:48 20:48 WBC 11.0 H (4.0-10.5) x10^3/uL RBC 5.29 (4.1-5.4) x10^6/uL Hgb 15.7 (12.0-16.0) g/dL Hct 46.6 (35-47) % MCV 88.1 (78-100) fL MCH 29.7 (26-32) pg MCHC 33.7 (32-36) g/dL RDW 12.6 (11.5-14.0) % Plt Count 299 (150-450) x10^3/uL MPV 10.8 (7.5-11.0) fL Gran % 72.0 H (36.0-66.0) % Immature Gran % (Auto) 0.3 (0.00-0.4) % Nucleat RBC Rel Count 0.0 (0.00-0.1) % Eos # (Auto) 0.06 (0-0.5) x10^3/uL Immature Gran # (Auto) 0.03 (0.00-0.03) x10^3u/L Absolute Lymphs (auto) 2.36 (1.0-4.6) x10^3/uL Absolute Monos (auto) 0.59 (0.0-1.3) x10^3/uL Absolute Nucleated RBC 0.00 (0.00-0.01) x10^3u/L Lymphocytes % 21.4 L (24.0-44.0) % Monocytes % 5.3 (0.0-12.0) % Eosinophils % 0.5 (0.00-5.0) % Basophils % 0.5 (0.0-0.4) % Absolute Granulocytes 7.94 H (1.4-6.9) x10^3/uL Basophils # 0.05 (0-0.4) x10^3/uL Sodium 135 L (137-145) mmol/L Potassium 4.0 (3.5-5.1) mmol/L Chloride 99 (98-107) mmol/L Carbon Dioxide 29 (22-30) mmol/L Anion Gap 11.2 (5-15) MEQ/L BUN 12 (7-17) mg/dL Creatinine 0.60 (0.52-1.04) mg/dL Estimated GFR > 60.0 ML/MIN Glucose 332 H (74-106) mg/dL POC Glucometer (74 to 106) mg/dL Lactic Acid (0.4-2.0) Calcium 9.2 (8.4-10.2) mg/dL Total Bilirubin 0.70 (0.2-1.3) mg/dL AST 24 (14-36) U/L ALT 21 (0-35) U/L Alkaline Phosphatase 77 (38-126) U/L Serum Total Protein 7.4 (6.3-8.2) g/dL Albumin 4.4 (3.5-5.0) g/dL Amylase 54 (30-110) U/L Lipase 21 L (23-300) U/L Urine Color Yellow (Yellow) Urine Appearance Clear (Clear) Urine pH 6.0 (4.6-8.0) Ur Specific [place] >=1.030 A (1.005-1.030) Urine Protein Negative (Negative) Urine Glucose (UA) >=1000 A (Negative) mg/dL Urine Ketones 15 A (Negative) Urine Blood Negative (Negative) Urine Nitrite Negative (Negative) Urine Bilirubin Negative (Negative) Urine Urobilinogen 0.2 (0.2) mg/dL Ur Leukocyte Esterase Negative (Negative) U Hyaline Cast (Auto) NONE SEEN (0-2) /LPF Urine Microscopic RBC 0-2 (0-5) /HPF Urine Microscopic WBC 0-2 (0-5) /HPF Ur Epithelial Cells None Seen (None Seen) /HPF Urine Bacteria None Seen (None Seen) /HPF Urine Culture Reflexed NO (NO) Urine HCG, Qual (NEGATIVE) 02/02/23 Range/Units 20:05 WBC (4.0-10.5) x10^3/uL RBC (4.1-5.4) x10^6/uL Hgb (12.0-16.0) g/dL Hct (35-47) % MCV (78-100) fL MCH (26-32) pg MCHC (32-36) g/dL RDW (11.5-14.0) % Plt Count (150-450) x10^3/uL MPV (7.5-11.0) fL Gran % (36.0-66.0) % Immature Gran % (Auto) (0.00-0.4) % Nucleat RBC Rel Count (0.00-0.1) % Eos # (Auto) (0-0.5) x10^3/uL Immature Gran # (Auto) (0.00-0.03) x10^3u/L Absolute Lymphs (auto) (1.0-4.6) x10^3/uL Absolute Monos (auto) (0.0-1.3) x10^3/uL Absolute Nucleated RBC (0.00-0.01) x10^3u/L Lymphocytes % (24.0-44.0) % Monocytes % (0.0-12.0) % Eosinophils % (0.00-5.0) % Basophils % (0.0-0.4) % Absolute Granulocytes (1.4-6.9) x10^3/uL Basophils # (0-0.4) x10^3/uL Sodium (137-145) mmol/L Potassium (3.5-5.1) mmol/L Chloride (98-107) mmol/L Carbon Dioxide (22-30) mmol/L Anion Gap (5-15) MEQ/L BUN (7-17) mg/dL Creatinine (0.52-1.04) mg/dL Estimated GFR ML/MIN Glucose (74-106) mg/dL POC Glucometer 371 H (74 to 106) mg/dL Lactic Acid (0.4-2.0) Calcium (8.4-10.2) mg/dL Total Bilirubin (0.2-1.3) mg/dL AST (14-36) U/L ALT (0-35) U/L Alkaline Phosphatase (38-126) U/L Serum Total Protein (6.3-8.2) g/dL Albumin (3.5-5.0) g/dL Amylase (30-110) U/L Lipase (23-300) U/L Urine Color (Yellow) Urine Appearance (Clear) Urine pH (4.6-8.0) Ur Specific [place] (1.005-1.030) Urine Protein (Negative) Urine Glucose (UA) (Negative) mg/dL Urine Ketones (Negative) Urine Blood (Negative) Urine Nitrite (Negative) Urine Bilirubin (Negative) Urine Urobilinogen (0.2) mg/dL Ur Leukocyte Esterase (Negative) U Hyaline Cast (Auto) (0-2) /LPF Urine Microscopic RBC (0-5) /HPF Urine Microscopic WBC (0-5) /HPF Ur Epithelial Cells (None Seen) /HPF Urine Bacteria (None Seen) /HPF Urine Culture Reflexed (NO) Urine HCG, Qual (NEGATIVE) - Progress Progress: improved, re-examined Progress Note: 02/02/23 21:33 pt is feeling better after IVF and glucose is normalizing 02/02/23 23:55 nausea resolved and pt feels ready to eat now. pt feels comfortable for DC rather than admit or further fluids in ER after discussion. Will give PO challenge. 02/03/23 00:04 02/03/23 00:07 tolerate PO challenge well. Counseled pt/family regarding: lab results, diagnosis, need for follow-up Medical Desision Making - Independent Historian Additional History obtained from: Mother - Discussion of managment Reviewed:: Test results, Need for additional workup - Diagnostic Testing Diagnostic test were ordered, analyzed, and reviewed by me: Yes - Risk of complications The pt has a high risk of morbidity or mortality based on: Decision regarding hospitilization or escalation of hosp level of care - Departure Clinical Impression: early ketosis - resolving after fluids Condition: Good Critical Care Time: No Referrals: HENRIK SALDAÑA NP [Primary Care Provider] - Follow up/PCP as directed Additional Instructions: Continue to advance your diet intake as tolerated and monitor glucose response. Followup with your tomorrow, and return meantime if not continuing to improve, vomiting, dizziness, abdominal pain, fever, respiratory symptoms or any other concerns.
[2023-02-03 00:14] VITALS: BP 118/92; PULSE 92; RESP 19; O2SAT 99
== END 2023-02-03 00:12 | disposition home or self-care (01) ==
LOC: ED 19:57
DX: E10.10 Type 1 diabetes mellitus with ketoacidosis without coma (principal); Z96.41 Presence of insulin pump (external) (internal); Z79.4 Long term (current) use of insulin; R51.9 Headache, unspecified; R11.0 Nausea; Z79.899 Other long term (current) drug therapy; Z28.310 Unvaccinated for COVID-19; Z72.0 Tobacco use
CPT/HCPCS: 36000; 36415; 80053; 81001; 81025; 82150; 82947; 83605; 83690; 85025; 96360; 99283

== ENCOUNTER 2023-08-12 21:57 | Emergency (ER) | payer OTHER ==
--- NOTE | 2023-08-12 22:22 | ERPHSYRPT ---
- History of Present Illness Time Seen by Provider: 08/12/23 22:15 Source: patient Exam Limitations: no limitations Physician History: Patient is a 23-year-old female with a history of type 1 diabetes on insulin pump presents to our ED for evaluation of nausea, vomiting and diarrhea. Patient states that she observed that her OmniPod insulin pump was pulled out of place. Patient checked a urine observed ketones and was worried she may have been in DKA. Patient denies pain. No fever. Symptoms are constant. Symptoms are moderate in intensity. No specific worsening or improving factors. Patient voices no other complaints or concerns at this time. Portions of this note were created with voice recognition technology. There may be grammatical, spelling, punctuation or sound alike errors Timing/Duration: today Severity: moderate Modifying Factors: Improves With: nothing Associated Symptoms: denies symptoms Allergies/Adverse Reactions: nickel [Nickel] Allergy (Verified 08/12/23 22:13) Rash Home Medications: Insulin Aspart (Niacinamide) [Fiasp 100 Unit/ml Vial] 1 unit SQ ACHS 08/12/23 [History] Hx Tetanus, Diphtheria Vaccination/Date Given: Yes Hx Influenza Vaccination/Date Given: No Hx Pneumococcal Vaccination/Date Given: No Travel Risk - Vaccine Status Have you recieved a Covid-19 vaccination: No - Review of Systems Constitutional: No Symptoms, No Fever, No Chills Eyes: No Symptoms Ears, Nose, & Throat: No Symptoms Respiratory: No Symptoms, No Cough, No Dyspnea Cardiac: No Symptoms, No Chest Pain, No Edema, No Syncope Abdominal/Gastrointestinal: No Symptoms, No Abdominal Pain, No Nausea, No Vomiting, No Diarrhea Genitourinary Symptoms: No Symptoms, No Dysuria Musculoskeletal: No Symptoms, No Back Pain, No Neck Pain Skin: No Symptoms, No Rash Neurological: No Symptoms, No Dizziness, No Focal Weakness, No Sensory Changes Psychological: No Symptoms Endocrine: No Symptoms Hematologic/Lymphatic: No Symptoms Immunological/Allergic: No Symptoms All Other Systems: Reviewed and Negative - Past Medical History Pertinent Past Medical History: Yes Neurological History: No Pertinent History ENT History: No Pertinent History Cardiac History: No Pertinent History Respiratory History: Asthma Endocrine Medical History: Diabetes Type I, Hypothyroidism Musculoskeletal History: No Pertinent History GI Medical History: No Pertinent History History: No Pertinent History Psycho-Social History: No Pertinent History Female Reproductive Disorders: No Pertinent History Other Medical History: PT. HAS BRIT'S DX BUT NOT ON THYROID MED. - Past Surgical History Past Surgical History: Yes Neuro Surgical History: No Pertinent History Cardiac: No Pertinent History Respiratory: No Pertinent History Gastrointestinal: No Pertinent History Genitourinary: No Pertinent History Musculoskeletal: No Pertinent History Female Surgical History: No Pertinent History Other Surgical History: . - Social History Smoking Status: Never smoker How long have you smoked: years Exposure to second hand smoke: No Drug Use: none Patient Lives Alone: No - Nursing Vital Signs Nursing Vital Signs: Initial Vital Signs Temperature 97.9 F 08/12/23 22:05 Pulse Rate 119 H 08/12/23 22:05 Respiratory Rate 18 08/12/23 22:05 Blood Pressure 119/75 08/12/23 22:05 O2 Sat by Pulse Oximetry 100 08/12/23 22:05 Pain Scale Pain Intensity 0 - Physical Exam General Appearance: no apparent distress, alert Eye Exam: PERRL/EOMI, eyes nml inspection Ears, Nose, Throat Exam: normal ENT inspection, TMs normal, pharynx normal, moist mucous membranes Neck Exam: normal inspection, non-tender, supple, full range of motion Respiratory Exam: normal breath sounds, lungs clear, airway intact, No respiratory distress Cardiovascular Exam: regular rate/rhythm, normal heart sounds, normal peripheral pulses Gastrointestinal/Abdomen Exam: soft, normal bowel sounds, No tenderness, No mass Back Exam: normal inspection, normal range of motion, No CVA tenderness, No vertebral tenderness Extremity Exam: normal inspection, normal range of motion, pelvis stable Neurologic Exam: alert, oriented x 3, cooperative, normal mood/affect, nml cerebellar function, nml station & gait, sensation nml, No motor deficits Skin Exam: normal color, warm, dry, No rash Lymphatic Exam: No adenopathy SpO2 Interpretation: normal SpO2: 100 O2 Delivery: Room Air - Course Nursing assessment & vital signs reviewed: Yes EKG Interpreted by Me: RATE ([id number]), Sinus Tach, NORMAL AXIS, NORMAL INTERVALS Ordered Tests: Active Orders 24 hr Category Date Time Status Cardroom Supervisor STAT Care 08/12/23 22:19 Active EKG-ER Only STAT Care 08/12/23 22:19 Active IV Insertion STAT Care 08/12/23 22:19 Active Pulse Oximetry (ED) STAT Care 08/12/23 22:19 Active CBC W DIFF Stat Lab 08/12/23 22:30 Completed CMP Routine Lab 08/13/23 01:25 Completed CMP Stat Lab 08/12/23 22:30 Completed HCG QUALITATIVE, URINE Stat Lab 08/12/23 22:09 Completed POCT GLUCOSE Stat Lab 08/12/23 22:27 Completed UA W/RFX UR CULTURE Stat Lab 08/12/23 22:09 Completed VENOUS BLOOD GAS Urgent Lab 08/12/23 22:28 Completed Medication Summary Discontinued Medications Generic Name Dose Route Start Last Admin Trade Name Juanito PRN Reason Stop Dose Admin Sodium Chloride 1,000 mls @ 999 mls/hr 08/12/23 22:19 08/12/23 23:35 Sodium Chloride 0.9% 1000 Ml IV 08/12/23 23:19 Infused .Q1H1M STA Infusion Sodium Chloride Confirm 08/12/23 22:32 Sodium Chloride 0.9% 1000 Ml Administered 08/12/23 22:33 Dose 1,000 mls @ ud .ROUTE .STK-MED ONE Sodium Chloride 1,000 mls @ 999 mls/hr 08/12/23 23:47 08/12/23 23:52 Sodium Chloride 0.9% 1000 Ml IV 08/13/23 00:47 999 mls/hr .Q1H1M STA Administration Sodium Chloride Confirm 08/12/23 23:48 Sodium Chloride 0.9% 1000 Ml Administered 08/12/23 23:49 Dose 1,000 mls @ ud .ROUTE .STK-MED ONE Lab/Rad Data: Laboratory Result Diagrams 08/12/23 22:30 08/13/23 01:25 Laboratory Results 08/13/23 08/12/23 08/12/23 Range/Units 01:25 22:30 22:30 WBC 11.6 H (4.0-10.5) x10^3/uL RBC 5.01 (4.1-5.4) x10^6/uL Hgb 14.7 (12.0-16.0) g/dL Hct 44.1 (35-47) % MCV 88.0 (78-100) fL MCH 29.3 (26-32) pg MCHC 33.3 (32-36) g/dL RDW 12.9 (11.5-14.0) % Plt Count 227 (150-450) x10^3/uL MPV 11.6 H (7.5-11.0) fL Gran % 79.4 H (36.0-66.0) % Immature Gran % (Auto) 0.3 (0.00-0.4) % Nucleat RBC Rel Count 0.0 (0.00-0.1) % Eos # (Auto) 0.11 (0-0.5) x10^3/uL Immature Gran # (Auto) 0.04 H (0.00-0.03) x10^3u/L Absolute Lymphs (auto) 1.52 (1.0-4.6) x10^3/uL Absolute Monos (auto) 0.68 (0.0-1.3) x10^3/uL Absolute Nucleated RBC 0.00 (0.00-0.01) x10^3u/L Lymphocytes % 13.1 L (24.0-44.0) % Monocytes % 5.9 (0.0-12.0) % Eosinophils % 1.0 (0.00-5.0) % Basophils % 0.3 (0.0-0.4) % Absolute Granulocytes 9.19 H (1.4-6.9) x10^3/uL Basophils # 0.03 (0-0.4) x10^3/uL pO2/FiO2 Ratio % VBG pH (7.32-7.42) VBG pCO2 at Pat Temp (42-55) mm/Hg VBG pO2 at Pat Temp (25-40) mm/Hg VBG HCO3 (22-28) meq/L VBG O2 Sat ([place]) (95-100) VBG Base Excess (-2.0-2.0) VBG Hemoglobin VBG Carboxyhemoglobin (0.0-6.9) % T HGB POC Potassium (3.5-5.1) Sodium 134 L 129 L (137-145) mmol/L Potassium 4.1 5.1 (3.5-5.1) mmol/L Chloride 104 98 (98-107) mmol/L Carbon Dioxide 25 21 L (22-30) mmol/L Anion Gap 9.9 15.1 H (5-15) MEQ/L BUN 14 16 (7-17) mg/dL Creatinine 0.52 0.56 (0.52-1.04) mg/dL Estimated GFR 132.2 129.8 ML/MIN Glucose 269 H 514 H* (74-106) mg/dL POC Glucometer (50 to 500) mg/dL Calcium 8.7 9.3 (8.4-10.2) mg/dL Total Bilirubin 0.70 0.90 (0.2-1.3) mg/dL AST 26 30 (14-36) U/L ALT 26 27 (0-35) U/L Alkaline Phosphatase 94 123 (38-126) U/L Serum Total Protein 6.7 7.0 (6.3-8.2) g/dL Albumin 4.0 4.4 (3.5-5.0) g/dL Urine Color (Yellow) Urine Appearance (Clear) Urine pH (4.6-8.0) Ur Specific Cecil (1.005-1.030) Urine Protein (Negative) Urine Glucose (UA) (Negative) mg/dL Urine Ketones (Negative) Urine Blood (Negative) Urine Nitrite (Negative) Urine Bilirubin (Negative) Urine Urobilinogen (0.2) mg/dL Ur Leukocyte Esterase (Negative) U Hyaline Cast (Auto) (0-2) /LPF Urine Microscopic RBC (0-5) /HPF Urine Microscopic WBC (0-5) /HPF Ur Epithelial Cells (None Seen) /HPF Urine Bacteria (None Seen) /HPF Urine Culture Reflexed (NO) Urine HCG, Qual (NEGATIVE) 08/12/23 08/12/23 08/12/23 Range/Units 22:28 22:27 22:09 WBC (4.0-10.5) x10^3/uL RBC (4.1-5.4) x10^6/uL Hgb (12.0-16.0) g/dL Hct (35-47) % MCV (78-100) fL MCH (26-32) pg MCHC (32-36) g/dL RDW (11.5-14.0) % Plt Count (150-450) x10^3/uL MPV (7.5-11.0) fL Gran % (36.0-66.0) % Immature Gran % (Auto) (0.00-0.4) % Nucleat RBC Rel Count (0.00-0.1) % Eos # (Auto) (0-0.5) x10^3/uL Immature Gran # (Auto) (0.00-0.03) x10^3u/L Absolute Lymphs (auto) (1.0-4.6) x10^3/uL Absolute Monos (auto) (0.0-1.3) x10^3/uL Absolute Nucleated RBC (0.00-0.01) x10^3u/L Lymphocytes % (24.0-44.0) % Monocytes % (0.0-12.0) % Eosinophils % (0.00-5.0) % Basophils % (0.0-0.4) % Absolute Granulocytes (1.4-6.9) x10^3/uL Basophils # (0-0.4) x10^3/uL pO2/FiO2 Ratio 21.0 % VBG pH 7.39 (7.32-7.42) VBG pCO2 at Pat Temp 39 L (42-55) mm/Hg VBG pO2 at Pat Temp 36 (25-40) mm/Hg VBG HCO3 23.6 (22-28) meq/L VBG O2 Sat ([place]) 58.3 L (95-100) VBG Base Excess -1.2 (-2.0-2.0) VBG Hemoglobin 15.5 VBG Carboxyhemoglobin 1.7 (0.0-6.9) % T HGB POC Potassium 5.3 H (3.5-5.1) Sodium (137-145) mmol/L Potassium (3.5-5.1) mmol/L Chloride (98-107) mmol/L Carbon Dioxide (22-30) mmol/L Anion Gap (5-15) MEQ/L BUN (7-17) mg/dL Creatinine (0.52-1.04) mg/dL Estimated GFR ML/MIN Glucose (74-106) mg/dL POC Glucometer 521 H* (50 to 500) mg/dL Calcium (8.4-10.2) mg/dL Total Bilirubin (0.2-1.3) mg/dL AST (14-36) U/L ALT (0-35) U/L Alkaline Phosphatase (38-126) U/L Serum Total Protein (6.3-8.2) g/dL Albumin (3.5-5.0) g/dL Urine Color (Yellow) Urine Appearance (Clear) Urine pH (4.6-8.0) Ur Specific [place] (1.005-1.030) Urine Protein (Negative) Urine Glucose (UA) (Negative) mg/dL Urine Ketones (Negative) Urine Blood (Negative) Urine Nitrite (Negative) Urine Bilirubin (Negative) Urine Urobilinogen (0.2) mg/dL Ur Leukocyte Esterase (Negative) U Hyaline Cast (Auto) (0-2) /LPF Urine Microscopic RBC (0-5) /HPF Urine Microscopic WBC (0-5) /HPF Ur Epithelial Cells (None Seen) /HPF Urine Bacteria (None Seen) /HPF Urine Culture Reflexed (NO) Urine HCG, Qual NEGATIVE (NEGATIVE) 08/12/23 Range/Units 22:09 WBC (4.0-10.5) x10^3/uL RBC (4.1-5.4) x10^6/uL Hgb (12.0-16.0) g/dL Hct (35-47) % MCV (78-100) fL MCH (26-32) pg MCHC (32-36) g/dL RDW (11.5-14.0) % Plt Count (150-450) x10^3/uL MPV (7.5-11.0) fL Gran % (36.0-66.0) % Immature Gran % (Auto) (0.00-0.4) % Nucleat RBC Rel Count (0.00-0.1) % Eos # (Auto) (0-0.5) x10^3/uL Immature Gran # (Auto) (0.00-0.03) x10^3u/L Absolute Lymphs (auto) (1.0-4.6) x10^3/uL Absolute Monos (auto) (0.0-1.3) x10^3/uL Absolute Nucleated RBC (0.00-0.01) x10^3u/L Lymphocytes % (24.0-44.0) % Monocytes % (0.0-12.0) % Eosinophils % (0.00-5.0) % Basophils % (0.0-0.4) % Absolute Granulocytes (1.4-6.9) x10^3/uL Basophils # (0-0.4) x10^3/uL pO2/FiO2 Ratio % VBG pH (7.32-7.42) VBG pCO2 at Pat Temp (42-55) mm/Hg VBG pO2 at Pat Temp (25-40) mm/Hg VBG HCO3 (22-28) meq/L VBG O2 Sat ([place]) (95-100) VBG Base Excess (-2.0-2.0) VBG Hemoglobin VBG Carboxyhemoglobin (0.0-6.9) % T HGB POC Potassium (3.5-5.1) Sodium (137-145) mmol/L Potassium (3.5-5.1) mmol/L Chloride (98-107) mmol/L Carbon Dioxide (22-30) mmol/L Anion Gap (5-15) MEQ/L BUN (7-17) mg/dL Creatinine (0.52-1.04) mg/dL Estimated GFR ML/MIN Glucose (74-106) mg/dL POC Glucometer (50 to 500) mg/dL Calcium (8.4-10.2) mg/dL Total Bilirubin (0.2-1.3) mg/dL AST (14-36) U/L ALT (0-35) U/L Alkaline Phosphatase (38-126) U/L Serum Total Protein (6.3-8.2) g/dL Albumin (3.5-5.0) g/dL Urine Color Yellow (Yellow) Urine Appearance Clear (Clear) Urine pH 5.5 (4.6-8.0) Ur Specific [place] >=1.030 A (1.005-1.030) Urine Protein Negative (Negative) Urine Glucose (UA) >=1000 A (Negative) mg/dL Urine Ketones 80 A (Negative) Urine Blood Large A (Negative) Urine Nitrite Negative (Negative) Urine Bilirubin Negative (Negative) Urine Urobilinogen 0.2 (0.2) mg/dL Ur Leukocyte Esterase Negative (Negative) U Hyaline Cast (Auto) NONE SEEN (0-2) /LPF Urine Microscopic RBC 0-2 (0-5) /HPF Urine Microscopic WBC 0-2 (0-5) /HPF Ur Epithelial Cells Rare (None Seen) /HPF Urine Bacteria None Seen (None Seen) /HPF Urine Culture Reflexed NO (NO) Urine HCG, Qual (NEGATIVE) - Progress Progress: improved Progress Note: 23-year-old female presents to our ED for evaluation of nausea vomiting diarrhea. Patient's OmniPod insulin pump dislodged. Patient was concern for DKA. Patient sinus tachycardia. Initial sodium 129. Anion gap 15.1. Glucosuria observed with 80 ketones. 2 L IV fluids infused. Hyponatremia improved to 134. Anion gap improved to 9.9. Glucose decreased to from 5 14-2 69. Patient currently has her Omni pad insulin pump in place and infusing. Patient reassessed. She feels well. Patient requesting discharge. Patient agrees to follow-up with her primary care doctor within 48 hours for evaluation. Portions of this note were created with voice recognition technology. There may be grammatical, spelling, punctuation or sound alike errors Complexity problem addressed is moderate acute complicated No critical care time Complex of data reviewed and analyzed is moderate. Test ordered test reviewed. Results analyzed and correlated clinically with history and physical exam. Risk of complication and or risk of morbidity/mortality patient management is low Vital stable. Time spent to discharge patient is approximately 20 minutes. Plan of care established for shared decision making. No social determinants of health present impede follow-up. Portions of this note were created with voice recognition technology. There may be grammatical, spelling, punctuation or sound alike errors 08/13/23 02:08 Counseled pt/family regarding: lab results, diagnosis, need for follow-up, rad results - Departure Departure Disposition: Home Clinical Impression: Dehydration, Hyponatremia, Hyperglycemia, Nausea vomiting and diarrhea, Insulin pump problem Condition: Stable Critical Care Time: No Referrals: HENRIK SALDAÑA, OBSTETRICS NURSE [Primary Care Provider] - Follow up/PCP as directed Additional Instructions: Discharge/Care Plan ANANT STEPHENS MANDY was seen on 08/13/23 in the Emergency Room. The patient was counseled regarding Diagnosis,Lab results, Imaging studies, need for follow up and when to return to the Emergency Room. Prescriptions given: Discharge Note I have spoken with the patient and/or caregivers. I have explained the patient's condition, diagnosis and treatment plan based on the information available to me at this time. I have answered the patient's and/or caregiver's questions and addressed any concerns. The patient and/or caregivers have as good understanding of the patient's diagnosis, condition and treatment plan as can be expected at this point. The vital signs have been stable. The patient's condition is stable and appropriate for discharge from the emergency department. The patient will pursue further outpatient evaluation with the primary care physician or other designated or consulting physician as outlined in the discharge instructions. The patient and/or caregivers are agreeable to this plan of care and follow-up instructions have been explained in detail. The patient and/or caregivers have received these instruction. The patient/and or caregivers are aware that any significant change in condition or worsening of symptoms should prompt an immediate return to this or the closest emergency department or call 911.
[2023-08-12 22:29] LABS: HCG URINE TEST NEGATIVE (NEGATIVE)
[2023-08-12 22:30] VITALS: TEMP 97.9
[2023-08-12] MEDS ORDERED: Sodium Chloride 0.9% 1000 ML 1,000 ML ONE ×2 (22:32→23:48)
[2023-08-12 22:33] LABS: VBG BASE EXCESS -1.2 (-2.0-2.0); VBG CARBOXYHEMOGLOBIN 1.7 % T HGB (0.0-6.9); VBG HCO3- 23.6 meq/L (22-28); VBG HEMOGLOBIN 15.5; VBG O2 SATURATION 58.3 (95-100); VBG POTASSIUM 5.3 (3.5-5.1); VBG pH 7.39 (7.32-7.42)
[2023-08-12] MEDS: Sodium Chloride 0.9% 1000 ML 1,000 ML IV STA ×2 (22:33→23:52)
[2023-08-12 22:37] LABS: Absolute Neutrophil Ct (ANC) 9.19 x10^3/uL (1.4-6.9); BASOPHIL % 0.3 % (0.0-0.4); Basophil (Absolute #) 0.03 x10^3/uL (0-0.4); Eosinophil (Absolute #) 0.11 x10^3/uL (0-0.5); Hematocrit 44.1 % (35-47); Hemoglobin 14.7 g/dL (12.0-16.0); IMMATURE GRAN # 0.04 x10^3u/L (0.00-0.03); IMMATURE GRAN % 0.3 % (0.00-0.4); Lymphocyte (Absolute #) 1.52 x10^3/uL (1.0-4.6); Lymphocytes % 13.1 % (24.0-44.0); Mean Corpuscular Hemoglobin 29.3 pg (26-32); Mean Corpuscular Hgb Concent. 33.3 g/dL (32-36); Mean Platelet Volume 11.6 fL (7.5-11.0); Monocyte (Absolute #) 0.68 x10^3/uL (0.0-1.3); Monocytes % 5.9 % (0.0-12.0); Neutrophil % 79.4 % (36.0-66.0); Platelet Count 227 x10^3/uL (150-450); Red Blood Count 5.01 x10^6/uL (4.1-5.4); Red Cell Distribution Width 12.9 % (11.5-14.0); White Blood Count 11.6 x10^3/uL (4.0-10.5)
[2023-08-12 22:42] LABS: ADD URINE CULTURE? NO (NO); Appearance Clear (Clear); Bacteria None Seen /HPF (None Seen); Bilirubin Negative (Negative); Blood Large (Negative); Epithelial Cells Rare /HPF (None Seen); Glucose, Urine >=1000 mg/dL (Negative); Hyaline Casts NONE SEEN /LPF (0-2); Ketones 80 (Negative); Leukocyte Esterase Negative (Negative); Nitrite Negative (Negative); Ph 5.5 (4.6-8.0); Protein,Urine Dip Negative (Negative); RBC 0-2 /HPF (0-5); Specific Gravity >=1.030 (1.005-1.030); Urobilinogen 0.2 mg/dL (0.2); WBC 0-2 /HPF (0-5)
[2023-08-12 22:54] LABS: ALBUMIN 4.4 g/dL (3.5-5.0); ANION GAP 15.1 MEQ/L (5-15); BILIRUBIN,TOTAL 0.9 mg/dL (0.2-1.3); Calcium 9.3 mg/dL (8.4-10.2); Creatinine 1 0.56 mg/dL (0.52-1.04); EST GLOMERULAR FILTRATION RATE 129.8 ML/MIN; Potassium 5.1 mmol/L (3.5-5.1)
[2023-08-13 01:43] LABS: ANION GAP 9.9 MEQ/L (5-15); BILIRUBIN,TOTAL 0.7 mg/dL (0.2-1.3); Calcium 8.7 mg/dL (8.4-10.2); Creatinine 1 0.52 mg/dL (0.52-1.04); EST GLOMERULAR FILTRATION RATE 132.2 ML/MIN; Potassium 4.1 mmol/L (3.5-5.1); Total Protein 6.7 g/dL (6.3-8.2)
[2023-08-13 02:08] VITALS: O2SAT 100
[2023-08-13 02:09] VITALS: BP 109/85; PULSE 107; RESP 25
== END 2023-08-13 02:40 | disposition home or self-care (01) ==
LOC: ED 21:57
DX: T85.624A Displacement of insulin pump, initial encounter (principal); T38.3X6A Underdosing of insulin and oral hypoglycemic [antidiabetic] drugs, initial encounter; E10.65 Type 1 diabetes mellitus with hyperglycemia; E86.0 Dehydration; E87.1 Hypo-osmolality and hyponatremia; R11.2 Nausea with vomiting, unspecified; R19.7 Diarrhea, unspecified; Z96.41 Presence of insulin pump (external) (internal); Z79.4 Long term (current) use of insulin; Z28.310 Unvaccinated for COVID-19
CPT/HCPCS: 36000; 36415; 80053; 81001; 81025; 82805; 82947; 85025; 93005; 93041; 94760; 96360; 99284

== ENCOUNTER 2024-03-31 14:11 | Emergency (ER) | payer BC, OTHER ==
--- NOTE | 2024-03-31 14:20 | ERPHSYRPT ---
- History of Present Illness Time Seen by Provider: 03/31/24 14:20 Source: patient Exam Limitations: no limitations Physician History: This is a 24-year-old white female patient of nurse practitioner Rudi who was concerned because she had blood sugar level readings of over 500 this morning. Patient has an insulin pump in place and it appears to be functioning. Lilo ent's blood sugar levels yesterday were normal. Her symptoms of thirst and weakness started about 9 AM this morning. She has no nausea, no vomiting, no diarrhea. She is not short of breath and she has no chest pain. She does have backup plan and instructions for when her insulin pump is not functional. Patient has history of asthma, hypothyroidism and insulin-dependent diabetes. Patient is very knowledgeable regarding her diabetes and the care of her condition. Timing/Duration: today Severity: moderate Modifying Factors: Improves With: nothing Associated Symptoms: weakness, other, No nausea, No vomiting, No abdominal pain, No shortness of breath, No chest pain (Thirsty) Allergies/Adverse Reactions: nickel [Nickel] Allergy (Verified 03/31/24 14:57) Rash Home Medications: Insulin Aspart (Niacinamide) [Fiasp 100 Unit/ml Vial] 1 unit SQ ACHS 08/12/23 [History] Hx Tetanus, Diphtheria Vaccination/Date Given: Yes Hx Influenza Vaccination/Date Given: No Hx Pneumococcal Vaccination/Date Given: No Travel Risk - International Travel Have you traveled outside of the country in past 3 weeks: No - Emerging Infectious Disease Are you exhibiting symptoms associated with any current EIDs: No - Review of Systems Constitutional: Weakness Eyes: No Symptoms Ears, Nose, & Throat: No Symptoms Respiratory: No Symptoms Cardiac: No Symptoms Abdominal/Gastrointestinal: No Symptoms Genitourinary Symptoms: No Symptoms Musculoskeletal: No Symptoms Skin: No Symptoms Neurological: No Symptoms Psychological: No Symptoms Endocrine: Other (Thirst) Hematologic/Lymphatic: No Symptoms Immunological/Allergic: No Symptoms All Other Systems: Reviewed and Negative - Past Medical History Pertinent Past Medical History: Yes Neurological History: No Pertinent History ENT History: No Pertinent History Cardiac History: No Pertinent History Respiratory History: Asthma Endocrine Medical History: Diabetes Type I, Hypothyroidism Musculoskeletal History: No Pertinent History GI Medical History: No Pertinent History History: No Pertinent History Psycho-Social History: No Pertinent History Female Reproductive Disorders: No Pertinent History Other Medical History: PT. HAS BRIT'S DX BUT NOT ON THYROID MED. - Past Surgical History Past Surgical History: Yes Neuro Surgical History: No Pertinent History Cardiac: No Pertinent History Respiratory: No Pertinent History Gastrointestinal: No Pertinent History Genitourinary: No Pertinent History Musculoskeletal: No Pertinent History Female Surgical History: No Pertinent History Other Surgical History: . - Female History Hx Last Menstrual Period: November 2012 - nexplanon - Social History Smoking Status: Never smoker How long have you smoked: years Exposure to second hand smoke: No Drug Use: none Patient Lives Alone: No - Nursing Vital Signs Nursing Vital Signs: Initial Vital Signs Temperature 99.4 F 03/31/24 14:48 Pulse Rate 90 03/31/24 14:48 Respiratory Rate 18 03/31/24 14:48 Blood Pressure 120/88 03/31/24 14:48 O2 Sat by Pulse Oximetry 96 03/31/24 14:48 Pain Scale Pain Intensity 0 - Physical Exam General Appearance: no apparent distress, alert Eye Exam: PERRL/EOMI, eyes nml inspection Ears, Nose, Throat Exam: normal ENT inspection, moist mucous membranes Neck Exam: normal inspection, non-tender, supple, full range of motion Respiratory Exam: normal breath sounds, lungs clear, airway intact, No chest tenderness, No respiratory distress Cardiovascular Exam: regular rate/rhythm, normal heart sounds, normal peripheral pulses Gastrointestinal/Abdomen Exam: soft, normal bowel sounds, No tenderness Pelvic Exam: not done Rectal Exam: not done Back Exam: normal inspection, normal range of motion, No CVA tenderness, No vertebral tenderness Extremity Exam: normal inspection, normal range of motion, pelvis stable Neurologic Exam: alert, oriented x 3, cooperative, pit tanner II-XII nml as tested, nml cerebellar function, nml station & gait, sensation nml Skin Exam: normal color, warm, dry Lymphatic Exam: No adenopathy SpO2 Interpretation: normal O2 Delivery: Room Air - Course Nursing assessment & vital signs reviewed: Yes Ordered Tests: Active Orders 24 hr Category Date Time Status Tying Machine Operator Lumber STAT Care 03/31/24 15:01 Completed IV Insertion STAT Care 03/31/24 15:01 Completed POCT Glucose Check STAT Care 03/31/24 15:02 Completed CBC W DIFF Stat Lab 03/31/24 15:14 Completed CMP Stat Lab 03/31/24 15:14 Completed ETHYL ALCOHOL Stat Lab 03/31/24 15:14 Completed HCG QUALITATIVE, SERUM Stat Lab 03/31/24 15:14 Completed MAGNESIUM Stat Lab 03/31/24 15:14 Completed POCT GLUCOSE Stat Lab 03/31/24 15:02 Completed POCT GLUCOSE Stat Lab 03/31/24 16:56 Completed UA W/RFX UR CULTURE Stat Lab 03/31/24 15:06 Completed Medication Summary Discontinued Medications Generic Name Dose Route Start Last Admin Trade Name Juanito PRN Reason Stop Dose Admin Sodium Chloride 1,000 mls @ 999 mls/hr 03/31/24 15:01 03/31/24 16:23 Sodium Chloride 0.9% 1000 Ml IV 03/31/24 16:01 Infused .Q1H1M STA Infusion Sodium Chloride Confirm 03/31/24 15:09 Sodium Chloride 0.9% 1000 Ml Administered 03/31/24 15:10 Dose 1,000 mls @ ud .ROUTE .STK-MED ONE Lactated Ringer's 1,000 mls @ 999 mls/hr 03/31/24 15:36 03/31/24 17:27 Lactated Ringers IV 03/31/24 16:36 Infused .Q1H1M ONE Infusion Lactated Ringer's Confirm 03/31/24 15:52 Lactated Ringers Administered 03/31/24 15:53 Dose 1,000 mls @ ud IV .STK-MED ONE Insulin Human Regular 5 unit 03/31/24 15:36 03/31/24 15:54 Insulin Regular, Human 1 Unit IV 03/31/24 15:37 5 unit STAT ONE Administration Insulin Human Regular Confirm 03/31/24 15:51 Insulin Regular, Human 1 Unit Administered 03/31/24 15:52 Dose 5 unit .ROUTE .STK-MED ONE Lab/Rad Data: Laboratory Result Diagrams 03/31/24 15:14 03/31/24 15:14 Laboratory Results 03/31/24 03/31/24 03/31/24 Range/Units 16:56 15:14 15:14 WBC (3.98-10.04) x10^3/uL RBC (3.93-5.22) x10^6/uL Hgb (11.2-15.7) g/dL Hct (34.1-44.9) % MCV (79.4-94.8) fL MCH (25.6-32.2) pg MCHC (32.2-35.5) g/dL RDW (11.7-14.4) % Plt Count (182-369) x10^3/uL MPV (9.4-12.3) fL Gran % (34.0-71.1) % Immature Gran % (Auto) (0.001-0.429) % Nucleat RBC Rel Count (0.00-0.2) % Eos # (Auto) (0.04-0.36) x10^3/uL Immature Gran # (Auto) (0.001-0.031) x10^3u/L Absolute Lymphs (auto) (1.18-3.74) x10^3/uL Absolute Monos (auto) (0.24-0.86) x10^3/uL Absolute Nucleated RBC (0.00-0.012) x10^3u/L Lymphocytes % (19.3-51.7) % Monocytes % (4.7-12.5) % Eosinophils % (0.7-5.8) % Basophils % (0.1-1.2) % Absolute Granulocytes (1.56-6.13) x10^3/uL Basophils # (0.01-0.08) x10^3/uL Sodium 134 L (135-145) mmol/L Potassium 4.2 (3.5-5.1) mmol/L Chloride 100 (98-107) mmol/L Carbon Dioxide 25 (22-30) mmol/L Anion Gap 12.1 (5-15) MEQ/L BUN 14 (7-17) mg/dL Creatinine 0.64 (0.52-1.04) mg/dL Estimated GFR 124.9 ML/MIN Glucose 455 H (74-106) mg/dL POC Glucometer 210 H (74 to 106) mg/dL Calcium 9.4 (8.4-10.2) mg/dL Magnesium 2.1 (1.6-2.3) mg/dL Total Bilirubin 0.60 (0.2-1.3) mg/dL AST 31 (14-36) U/L ALT 32 (0-35) U/L Alkaline Phosphatase 107 (38-126) U/L Serum Total Protein 7.7 (6.3-8.2) g/dL Albumin 4.5 (3.5-5.0) g/dL Serum HCG, Qual NEGATIVE (NEGATIVE) Urine Color (Yellow) Urine Appearance (Clear) Urine pH (4.6-8.0) Ur Specific [place] (1.005-1.030) Urine Protein (Negative) Urine Glucose (UA) (Negative) mg/dL Urine Ketones (Negative) Urine Blood (Negative) Urine Nitrite (Negative) Urine Bilirubin (Negative) Urine Urobilinogen (0.2) mg/dL Ur Leukocyte Esterase (Negative) U Hyaline Cast (Auto) (0-2) /LPF Urine Microscopic RBC (0-5) /HPF Urine Microscopic WBC (0-5) /HPF Ur Epithelial Cells (None Seen) /HPF Urine Bacteria (None Seen) /HPF Urine Culture Reflexed (NO) Ethyl Alcohol < 10 (0-10) mg/dL 03/31/24 03/31/24 03/31/24 Range/Units 15:14 15:06 15:02 WBC 6.1 (3.98-10.04) x10^3/uL RBC 5.19 (3.93-5.22) x10^6/uL Hgb 15.2 (11.2-15.7) g/dL Hct 44.0 (34.1-44.9) % MCV 84.8 (79.4-94.8) fL MCH 29.3 (25.6-32.2) pg MCHC 34.5 (32.2-35.5) g/dL RDW 11.6 L (11.7-14.4) % Plt Count 270 (182-369) x10^3/uL MPV 10.7 (9.4-12.3) fL Gran % 58.8 (34.0-71.1) % Immature Gran % (Auto) 0.3 (0.001-0.429) % Nucleat RBC Rel Count 0.0 (0.00-0.2) % Eos # (Auto) 0.11 (0.04-0.36) x10^3/uL Immature Gran # (Auto) 0.02 (0.001-0.031) x10^3u/L Absolute Lymphs (auto) 1.89 (1.18-3.74) x10^3/uL Absolute Monos (auto) 0.45 (0.24-0.86) x10^3/uL Absolute Nucleated RBC 0.00 (0.00-0.012) x10^3u/L Lymphocytes % 31.2 (19.3-51.7) % Monocytes % 7.4 (4.7-12.5) % Eosinophils % 1.8 (0.7-5.8) % Basophils % 0.5 (0.1-1.2) % Absolute Granulocytes 3.55 (1.56-6.13) x10^3/uL Basophils # 0.03 (0.01-0.08) x10^3/uL Sodium (135-145) mmol/L Potassium (3.5-5.1) mmol/L Chloride (98-107) mmol/L Carbon Dioxide (22-30) mmol/L Anion Gap (5-15) MEQ/L BUN (7-17) mg/dL Creatinine (0.52-1.04) mg/dL Estimated GFR ML/MIN Glucose (74-106) mg/dL POC Glucometer 434 H (74 to 106) mg/dL Calcium (8.4-10.2) mg/dL Magnesium (1.6-2.3) mg/dL Total Bilirubin (0.2-1.3) mg/dL AST (14-36) U/L ALT (0-35) U/L Alkaline Phosphatase (38-126) U/L Serum Total Protein (6.3-8.2) g/dL Albumin (3.5-5.0) g/dL Serum HCG, Qual (NEGATIVE) Urine Color Yellow (Yellow) Urine Appearance Clear (Clear) Urine pH 5.5 (4.6-8.0) Ur Specific [place] 1.025 (1.005-1.030) Urine Protein Negative (Negative) Urine Glucose (UA) >=1000 A (Negative) mg/dL Urine Ketones 40 A (Negative) Urine Blood Negative (Negative) Urine Nitrite Negative (Negative) Urine Bilirubin Negative (Negative) Urine Urobilinogen 0.2 (0.2) mg/dL Ur Leukocyte Esterase Negative (Negative) U Hyaline Cast (Auto) NONE SEEN (0-2) /LPF Urine Microscopic RBC 0-2 (0-5) /HPF Urine Microscopic WBC 0-2 (0-5) /HPF Ur Epithelial Cells None Seen (None Seen) /HPF Urine Bacteria None Seen (None Seen) /HPF Urine Culture Reflexed NO (NO) Ethyl Alcohol (0-10) mg/dL - Progress Progress: improved Progress Note: 03/31/24 15:42 My medical decision making and the assignment of moderate complexity to this patient's medical issue today is based on review of the patient's past medical history, review the patient's medication list, reviewed patient drug allergy list, history present illness and physical findings on examination. The workup in this patient includes intravenous line placement, infusion of normal saline solution, CBC, CMP, urinalysis, [id number] glucose test, urinalysis. Differential diagnosis includes but is not limited to urinary tract infection, dehydration, DKA, hyperglycemia I interpreted the patient's laboratory data results. Based on the laboratory data results the patient has mild DKA. She does have 40 ketones level in her urine. Her blood sugar is in the 450-460 range. However, her anion gap and CO2 levels are normal. Patient wants to be discharged to home if at all possible. I think in this patient, she is very knowledgeable about her care and monitoring. Will provide her with an additional liter of crystalloid (LR). This should clear her ketones. We will also follow her clinically and see how she is feeling after her second liter of crystalloid. Will also provide her with low rate short acting regular insulin and recheck a blood glucose level. I will have the patient continue her insulin pump. 03/31/24 15:45 Counseled pt/family regarding: lab results, diagnosis, need for follow-up - Departure Departure Disposition: Home Clinical Impression: DKA (diabetic ketoacidosis) Condition: Good Critical Care Time: Yes Critical Care Time(excluding separately billable procedures): Critical 30-74 mins (35) Referrals: HENRIK SALDAÑA NP [Primary Care Provider] - Follow up/PCP as directed Instructions: High Blood Sugar, Adult (DC)
[2024-03-31 14:57] VITALS: TEMP 99.4
[2024-03-31] MEDS ORDERED: Sodium Chloride 0.9% 1000 ML 1,000 ML ONE (15:09)
[2024-03-31] MEDS: Sodium Chloride 0.9% 1000 ML 1,000 ML IV STA (15:12)
[2024-03-31 15:15] LABS: Absolute Neutrophil Ct (ANC) 3.55 x10^3/uL (1.56-6.13); BASOPHIL % 0.5 % (0.1-1.2); Basophil (Absolute #) 0.03 x10^3/uL (0.01-0.08); Eosinophil % 1.8 % (0.7-5.8); Eosinophil (Absolute #) 0.11 x10^3/uL (0.04-0.36); Hemoglobin 15.2 g/dL (11.2-15.7); IMMATURE GRAN # 0.02 x10^3u/L (0.001-0.031); IMMATURE GRAN % 0.3 % (0.001-0.429); Lymphocyte (Absolute #) 1.89 x10^3/uL (1.18-3.74); Lymphocytes % 31.2 % (19.3-51.7); Mean Cell Volume 84.8 fL (79.4-94.8); Mean Corpuscular Hemoglobin 29.3 pg (25.6-32.2); Mean Corpuscular Hgb Concent. 34.5 g/dL (32.2-35.5); Mean Platelet Volume 10.7 fL (9.4-12.3); Monocyte (Absolute #) 0.45 x10^3/uL (0.24-0.86); Monocytes % 7.4 % (4.7-12.5); Neutrophil % 58.8 % (34.0-71.1); Platelet Count 270 x10^3/uL (182-369); Red Blood Count 5.19 x10^6/uL (3.93-5.22); Red Cell Distribution Width 11.6 % (11.7-14.4); White Blood Count 6.1 x10^3/uL (3.98-10.04)
[2024-03-31 15:22] LABS: Appearance Clear (Clear); Bacteria None Seen /HPF (None Seen); Bilirubin Negative (Negative); Blood Negative (Negative); Epithelial Cells None Seen /HPF (None Seen); Glucose, Urine >=1000 mg/dL (Negative); Hyaline Casts NONE SEEN /LPF (0-2); Ketones 40 (Negative); Leukocyte Esterase Negative (Negative); Nitrite Negative (Negative); Ph 5.5 (4.6-8.0); Protein,Urine Dip Negative (Negative); RBC 0-2 /HPF (0-5); Specific Gravity 1.025 (1.005-1.030); Urobilinogen 0.2 mg/dL (0.2); WBC 0-2 /HPF (0-5)
[2024-03-31 15:26] LABS: HCG SERUM TEST NEGATIVE (NEGATIVE)
[2024-03-31 15:27] LABS: ALBUMIN 4.5 g/dL (3.5-5.0); ALKALINE PHOSPHATASE 107 U/L (38-126); ANION GAP 12.1 MEQ/L (5-15); BLOOD UREA NITROGEN 14 mg/dL (7-17); CHLORIDE 100 mmol/L (98-107); Calcium 9.4 mg/dL (8.4-10.2); Carbon Dioxide 25 mmol/L (22-30); Creatinine 1 0.64 mg/dL (0.52-1.04); EST GLOMERULAR FILTRATION RATE 124.9 ML/MIN; ETHYL ALCOHOL < 10 mg/dL (0-10); Glucose 455 mg/dL (74-106); MAGNESIUM 2.1 mg/dL (1.6-2.3); Potassium 4.2 mmol/L (3.5-5.1); SGOT/AST 31 U/L (14-36); SGPT/ALT 32 U/L (0-35); SODIUM 134 mmol/L (135-145); Total Protein 7.7 g/dL (6.3-8.2)
[2024-03-31] MEDS ORDERED: HUMULIN R ONE (15:51)
[2024-03-31] MEDS ORDERED: Lactated Ringers 1,000 ML IV ONE (15:52)
[2024-03-31] MEDS: HUMULIN R IV ONE (15:54)
[2024-03-31] MEDS: Lactated Ringers 1,000 ML IV ONE (16:23)
[2024-03-31 17:06] VITALS: BP 120/81; PULSE 88; RESP 23; O2SAT 100
== END 2024-03-31 17:34 | disposition home or self-care (01) ==
LOC: ED 14:11
DX: E10.10 Type 1 diabetes mellitus with ketoacidosis without coma (principal); Z96.41 Presence of insulin pump (external) (internal); R63.1 Polydipsia; R53.1 Weakness
CPT/HCPCS: 36000; 36415; 80053; 81001; 82077; 82947; 83735; 84703; 85025; 93041; 96360; 96374; 99284; J1815